=== PATIENT | male | born 1935 | race Caucasian/White ===

== ENCOUNTER → 2016-11-13 | Outpatient (CLI) | payer MEDICARE ==
[~2016-11-13] MED LIST: DOBUTamine DRIP for NUC MED 500 MG in DEXTROSE/WATER 1 250ML.BAG IV ONE
--- NOTE | 2016-11-13 12:20 | ECHOS ---
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 Max Heart Rate: 142 % of Max Predicted Heart Rate: 100 Rest Heart Rate: 66 Rest BP: 124/51 Max BP: 141/32 Mets Achieved: N/A The test was stopped because the target heart rate was achieved. Sinus rhythm. In response to stress, the ECG showed equivocal/borderline ST wave changes (see exercise report for details). LV size, wall thickness and systolic function are normal, with an EF of 60%. At recovery dobutamine stress, there was appropriate augmentation of systolic function of all segments CONCLUSIONS -------- 1. The patient received intravenous dobutamine beginning at 10 mcg/kg/min, increasing to 20 mcg/kg/min and 30 mcg/kg/min in 3 minute stages plus 0 mg atropine. 2. Sinus rhythm. 3. In response to stress, the ECG showed equivocal/borderline ST wave changes (see exercise report for details). 4. LV size, wall thickness and systolic function are normal, with an EF of 60%. 5. At recovery dobutamine stress, there was appropriate augmentation of systolic function of all segments 6. No 2D echocardiographic evidence of inducible ischemia to achieved workload. 7. No 2D echocardiographic evidence of inducible ischemia to pharmacologic stress. CONDITIONING MACHINE OPERATOR: Lobo Hicks RDCS
== END | disposition home or self-care (01) ==
LOC: RADNMMAIN 10:19
PROVIDERS: ATTEND Family Medicine
DX: I25.10 Atherosclerotic heart disease of native coronary artery without angina pectoris (principal)
CPT/HCPCS: 93017; C8928; J1250; Q9957; 93350

== ENCOUNTER → 2017-12-03 | Day surgery (SDC) | payer MEDICARE ==
[2017-11-26 15:25] VITALS: BMI 28.7
--- NOTE | 2017-12-02 08:58 | HP ---
HISTORY AND PHYSICAL CHIEF COMPLAINT: Right hand pain and numbness. HISTORY OF PRESENT ILLNESS: Patient is an 82-year-old, right-hand dominant, retired gentleman who presents with progressive right hand pain and numbness for the past several years. It has worsened recently. It is waking him up at night. He notes he has a difficult time with gripping and grasping. PAST MEDICAL HISTORY: Significant for heart disease, COPD, and hypertension. PAST SURGICAL HISTORY: Significant for previous heart surgery. CURRENT MEDICATIONS: 1. Advair. 2. Aspirin. 3. Losartan. 4. Proscar. 5. Ventolin. ALLERGIES: He denies drug allergies. FAMILY HISTORY: Family history is negative. SOCIAL HISTORY: Significant for previous tobacco use; however, he quit in 1966. He admits to daily alcohol use. REVIEW OF SYSTEMS: Sixteen point review of systems otherwise reviewed and is noncontributory. PHYSICAL EXAMINATION: On examination, the patient is approximately 5 feet 11 inches, 200 pounds of endomorphic habitus. HEENT exam is nonfocal. Neck is supple. On examination of his right hand, he has moderate thenar wasting. He has full digital range of motion. Adductor pollicis brevis strength is 4/5. Light touch is diminished in the right thumb, index and middle fingers. EMG report of the right upper extremity shows median motor latency of the carpal canal 6.6, sensory latency 12.5. IMPRESSION: 1. Symptomatic right carpal tunnel syndrome. 2. Chronic obstructive pulmonary disease. 3. History of heart disease. RECOMMENDATIONS: I talked to the patient at length regarding his condition and treatment options. At this point, he is quite symptomatic and opts to proceed with surgery. We will plan to proceed with right carpal tunnel release utilizing local anesthetic and IV sedation. We will likely perform that as an outpatient procedure. Risks and benefits were discussed at length in layman's terms. MMODL / IJN: [id number] /
[~2017-12-03] MED LIST changes: +DEXAMETHASONE SOD PHOSPHATE 10 MG/ML 1 ML VIAL IV ONE; -DOBUTamine DRIP for NUC MED 500 MG in DEXTROSE/WATER 1 250ML.BAG IV ONE; +LACTATED RINGERS 1,000 ML IV SCH; +LIDOCAINE 1% 20 ML VIAL (10MG/ML) FOR IV START INTRADERMA PRN; +LIDOCAINE 2% (PF) 20 MG/ML 2 ML AMP SQ ONE; +MIDAZOLAM 2 MG/2 ML VIAL IV PRN; +MIDAZOLAM 2 MG/2 ML VIAL ONE; +ONDANSETRON 4 MG/2 ML VIAL IVP ONE; +PROPOFOL 10 MG/ML 20 ML VIAL IV ONE; +ceFAZolin IN SWFI 2 GM/20 ML SYRINGE IVP ONE; +fentaNYL (PF) 50 MCG/ML 2 ML AMP IV PRN; +fentaNYL (PF) 50 MCG/ML 2 ML AMP ONE
--- NOTE | 2017-12-03 11:16 | P.OP ---
Date of Procedure: 12/03/17 Preoperative Diagnosis: Right carpal tunnel syndrome-symptomatic Postoperative Diagnosis: Same Procedure(s) Performed: Right carpal tunnel release Anesthesia: MAC, local Surgeon: [place] Estimated Blood Loss (ml): 2 Pathology: none sent Condition: stable Disposition: PACU Indications for Procedure: The patient's an 82-year-old male who presents with progressive right hand pain and numbness despite conservative measures. A discussion of the risks and benefits of operative intervention versus continued conservative measures was made with patient. He opted to proceed with surgery. Operative risks to include infection, neurovascular injury, development of blood clots, possible incomplete resolution of symptoms, possible recurrence of symptoms and need for subsequent procedures was discussed. Informed consent was obtained. Operative Findings: As below Description of Procedure: The patient was brought to the operating room, and after induction of IV sedation the right upper extremity was prepped and draped in a normal fashion. The proposed incision site was outlined with a skin marker in line with the radial aspect the fourth ray extending from the volar wrist crease distally 2-1/ 2 cm. 10 mL of 2% plain lidocaine was injected. The tourniquet was inflated to 250 mmHg. The skin incision was then made. The subcuticular tissues were divided sharply. Electrocautery was used for hemostasis. The superficial palmar fascia was identified and split in line with the skin incision. The transverse carpal ligament was identified and transected under direct visualization distally to level the palmar fat pad. I felt this was adequate distal release. Proximally it was taken to level of the volar wrist crease. A plane above and below the transverse carpal ligament was then bluntly developed with tenotomies. The confluence of the distal forearm fascia and the transverse carpal ligament was then transected under direct visualization with tenotomies with the tines pointed in the ulnar direction. I felt this was adequate proximal release. Neural lysis was not performed. The wound was irrigated normal saline. The skin was reprepped with simple 3-0 nylon suture. A sterile dressing was applied. The tourniquet was deflated with less than 15 minutes total tourniquet time. The patient was awoken from sedation and transferred to recovery room in good condition. Blood loss was estimated 2 mL. No complications were incurred. Sponge and needle counts were correct at the case.
[2017-12-03 11:24] VITALS: TEMP 97.6
[2017-12-03 11:28] VITALS: RESP 16
[2017-12-03 12:00] VITALS: BP 124/66; PULSE 77
== END | disposition home or self-care (01) ==
LOC: OR 08:49
PROVIDERS: ATTEND Orthopaedic Surgery
DX: G56.01 Carpal tunnel syndrome, right upper limb (principal); I10 Essential (primary) hypertension; I25.10 Atherosclerotic heart disease of native coronary artery without angina pectoris; J44.9 Chronic obstructive pulmonary disease, unspecified; M19.90 Unspecified osteoarthritis, unspecified site; K21.9 Gastro-esophageal reflux disease without esophagitis; Z79.51 Long term (current) use of inhaled steroids; Z79.82 Long term (current) use of aspirin; Z79.899 Other long term (current) drug therapy; Z87.891 Personal history of nicotine dependence; Z95.1 Presence of aortocoronary bypass graft
CPT/HCPCS: 64721; J2250; J1100; J2405; J3010; J2704; J2001; J0690

== ENCOUNTER → 2019-11-04 | Outpatient (CLI) | payer MEDICARE ==
[~2019-11-04] MED LIST changes: -DEXAMETHASONE SOD PHOSPHATE 10 MG/ML 1 ML VIAL IV ONE; +DOBUTamine DRIP for NUC MED 500 MG in DEXTROSE/WATER 1 250ML.BAG IV STA; -LACTATED RINGERS 1,000 ML IV SCH; -LIDOCAINE 1% 20 ML VIAL (10MG/ML) FOR IV START INTRADERMA PRN; -LIDOCAINE 2% (PF) 20 MG/ML 2 ML AMP SQ ONE; -MIDAZOLAM 2 MG/2 ML VIAL IV PRN; -MIDAZOLAM 2 MG/2 ML VIAL ONE; -ONDANSETRON 4 MG/2 ML VIAL IVP ONE; -PROPOFOL 10 MG/ML 20 ML VIAL IV ONE; -ceFAZolin IN SWFI 2 GM/20 ML SYRINGE IVP ONE; -fentaNYL (PF) 50 MCG/ML 2 ML AMP IV PRN; -fentaNYL (PF) 50 MCG/ML 2 ML AMP ONE
--- NOTE | 2019-11-04 12:19 | P.STRESS ---
- Stress Test Note Stress Test Results/Findings: Exam Performed: dobutamine stress echo with con Exam Date: 11/04/19 Reason for Exam: PRE-OP / CAD Height: 5 ft 10 in Weight: 190 kg Protocol: DSE Stage: 3 Duration of Exercise: 9:00 Resting Heart Rate: 65 Resting Blood Pressure: 84/40 Maximum Achieved Heart Rate: 126 Maximum Achieved Blood Pressure: 109/40 85% PMHR: 114 100% PMHR: 134 METS: NA Technologist Comment: Stress Test Results/Findings: This is a 83-year-old gentleman with history of hypertension, diabetes, hypercholesterolemia, being evaluated for cardiac status is a preop procedure. Patient has history of previous bypass surgery and also COPD. Stress data: Baseline EKG showed sinus rhythm with normal MN, QRS duration. Blood pressure at rest is 84/40 with pulse rate of 65. A standard dose of dobutamine was initiated at 10 mics and was titrated to 30 mics, achieving a maximum rate of 126 with a blood pressure 120/30. EKGs taken during after the dobutamine infusion showed mild ST depression in the anterior leads and also inferior leads of about half to 1 mm. Patient did not experience any chest pain. Echo data: Baseline echo images showed normal wall motion and thickening. Exercise echo images with low-dose and high-dose dobutamine showed progressive augmentation of wall motion and thickening in all segments. Final impression: #1. Positive dobutamine stress test based on EKG changes #2. Negative dobutamine echo
--- NOTE | 2019-11-05 13:57 | ECHOS ---
Stress Test Results/Findings: Exam Performed: dobutamine stress echo with con Exam Date: 11/04/19 Reason for Exam: PRE-OP / CAD Height: 5 ft 10 in Weight: 190 kg Protocol: DSE Stage: 3 Duration of Exercise: 9:00 Resting Heart Rate: 65 Resting Blood Pressure: 84/40 Maximum Achieved Heart Rate: 126 Maximum Achieved Blood Pressure: 109/40 85% PMHR: 114 100% PMHR: 134 METS: NA Technologist Comment: Stress Test Results/Findings: This is a 83-year-old gentleman with history of hypertension, diabetes, hypercholesterolemia, being evaluated for cardiac status is a preop procedure. Patient has history of previous bypass surgery and also COPD. Stress data: Baseline EKG showed sinus rhythm with normal SD, QRS duration. Blood pressure at rest is 84/40 with pulse rate of 65. A standard dose of dobutamine was initiated at 10 mics and was titrated to 30 mics, achieving a maximum rate of 126 with a blood pressure 120/30. EKGs taken during after the dobutamine infusion showed mild ST depression in the anterior leads and also inferior leads of about half to 1 mm. Patient did not experience any chest pain. Echo data: Baseline echo images showed normal wall motion and thickening. Exercise echo images with low-dose and high-dose dobutamine showed progressive augmentation of wall motion and thickening in all segments. Final impression: #1. Positive dobutamine stress test based on EKG changes #2. Negative dobutamine echo MTDD
== END | disposition home or self-care (01) ==
LOC: RADNMMAIN 10:11
PROVIDERS: ATTEND Family Medicine
DX: R94.39 Abnormal result of other cardiovascular function study (principal)
CPT/HCPCS: C8930; J1250; Q9950; 93351

== ENCOUNTER → 2021-11-02 | Outpatient (CLI) | payer MEDICARE ==
--- NOTE | 2021-11-02 16:21 | USB ---
Reason for Exam: Clinical finding. Findings: The whole breast of the left breast, the axilla of the left breast and the retroareolar of both breasts were scanned. Whole left breast ultrasound is performed including scanning of the subareolar region and axilla. Patient reports having mammogram and ultrasound for the left breast last year at [facility]. Those exams are not available for review at the time of this dictation. There appears to be dense tissue throughout. - At the 6:00 position, 4 cm from the nipple, there is an ovoid 1.0 x 0.5 x 0.4 cm hypoechoic area that demonstrates posterior through transmission, possibly debris-filled cyst. Six-month follow-up recommended. - Flame-shaped subareolar irregular gynecomastia suggested. - Benign-appearing left axillary tail lymph node with cortical thickness of 2 mm. - The glue reel operator reports the sensation of the transducer passing over a lump at the 3:00 position. There is underlying oval 4.5 x 1.3 cm heterogeneous echogenic area here. This can be assessed on ultrasound. Possible focal dense island of tissue. No other solid or cystic lesion. Overall Assessment: Incomplete: need additional imaging evaluation, BI-RAD 0 Management: Diagnostic Mammogram of both breasts. Bilateral diagnostic mammograms to assess for mammographic correlates to the left-sided ultrasound findings above. Electronically signed and approved by: Tomer Geronimo M.D. Radiologist
--- NOTE | 2021-11-02 16:24 | MM ---
Reason for Exam: Clinical finding. Baseline mammogram. Indicated Problems: Lump or thickening. Prior Study Comparison: Patient's first Mammogram. Tissue Density: The breast tissue is heterogeneously dense. This may lower the sensitivity of mammography. Findings: Analyzed By CAD. Only bilateral MLO views could be acquired as the patient did not have enough tissue to bring in for CC views. There is a palpable marker along the lateral periareolar left breast. There are somewhat heterogeneously dense tissues in the left breast and scattered densities in the right breast. On 3-D images, no persisting mass or suspicious microcalcification is seen. Six-month follow-up left breast ultrasound can be performed. Overall Assessment: Probably benign, BI-RAD 3 Management: Diagnostic Breast Ultrasound of the left breast in 6 months. 1. There appears to be a small amount of newly developing gynecomastia in the subareolar left breast that may correspond to the patient's palpable site. There is a background of more extensive chronic fibrotic appearing gynecomastia on both sides, left more so than the right. 2. There are a field left breast ultrasound findings that can be reassessed in 6 months. Electronically signed and approved by: Tomer Geronimo M.D. Radiologist
== END | disposition home or self-care (01) ==
LOC: RADUSWWP 15:05
PROVIDERS: ATTEND Surgery
DX: N63.20 Unspecified lump in the left breast, unspecified quadrant (principal)
CPT/HCPCS: 77066; 76641; G0279; 77062

== ENCOUNTER 2022-04-10 20:00 | Inpatient (IN) | payer MEDICARE ==
--- NOTE | 2022-04-10 21:23 | ED ---
General Adult HPI - General Chief complaint: Shortness of Breath Stated complaint: abn labs Time Seen by Provider: 04/10/22 20:18 Source: patient, RN notes reviewed, old records reviewed Mode of arrival: wheelchair - History of Present Illness Initial comments: Patient is an 86-year-old male who presents here to Department complaining of worsening shortness breath over the last few weeks. Is a history of COPD, hypertension. Is normally on 3 L nasal cannula oxygen at home at night, however has been needing it more recently during the day. States he has had worsening lower extremity edema. Mild nonproductive cough. No fevers. No nausea, vomiting, abdominal pain. No chest pain. Saw his PCP earlier today, and workup was remarkable for an elevated troponin minimally, as well as findings concerning for heart failure exacerbation. He was instructed to come here for further evaluation. Lasix was decreased weeks ago. Does have a history of chronic lung disease. Is resting comfortably at this time and has no other acute complaint at this time and presents for further evaluation. Denies any bleeding, melena, dark stools, hematemesis. No other acute findings at this time. Endorses mild orthopnea. Denies PND. Endorses lower extremity edema, as well as exertional dyspnea. - Related Data Home Medications Medication Instructions Recorded Confirmed Finasteride [Proscar] 5 mg PO DAILY 11/26/17 04/10/22 Oxaprozin [Daypro] 600 mg PO DAILY 11/26/17 04/10/22 Albuterol Inhaler [Ventolin Hfa 2 puff INHALATION RT-Q6H PRN 04/10/22 04/10/22 Inhaler] Clopidogrel [Plavix] 75 mg PO DAILY 04/10/22 04/10/22 Fluticasone Propion/Salmeterol 1 puff INHALATION RT-BID 04/10/22 04/10/22 [Fluticasone-Salmeterol 250-50] Furosemide [Lasix] 40 mg PO DAILY 04/10/22 04/10/22 Metoprolol Succinate [Metoprolol 25 mg PO DAILY 04/10/22 04/10/22 Succinate ER] Pravastatin Sodium [Pravachol] 20 mg PO DAILY 04/10/22 04/10/22 hydroCHLOROthiazide [Hydrodiuril] 25 mg PO DAILY PRN 04/10/22 04/10/22 Allergies Allergy/AdvReac Type Severity Reaction Status Date / Time No Known Allergies Allergy Verified 04/10/22 22:39 Review of Systems ROS Statement: Those systems with pertinent positive or pertinent negative responses have been documented in the HPI. Review of Systems: CONST: Denies fever EYES: Denies blurry vision ENT: Denies nasal congestion C/V: Denies Chest pain RESP: Shortness of breath GI: Denies abdominal pain : Denies dysuria SKIN: Denies rash. MSK: Denies joint pain. NEURO: Denies headache ROS Other: All systems not noted in ROS Statement are negative. Past Medical History Past Medical History: Coronary Artery Disease (CAD), COPD, Eye Disorder, Hearing Disorder / Deafness, Hypertension, Osteoarthritis (OA), Prostate Disorder, Skin Disorder Additional Past Medical History / Comment(s): GLAUCOMA, EYE PROB R/T WELDING WORK. RT CTS. ECZEMA History of Any Multi-Drug Resistant Organisms: None Reported Past Surgical History: Coronary Bypass/CABG, Hernia Repair, Prostate Surgery Additional Past Surgical History / Comment(s): QUAD CABG 2012 EST. EYE SURGERIES. ING HERNIA W/ MESH. Past Anesthesia/Blood Transfusion Reactions: No Reported Reaction Past Psychological History: No Psychological Hx Reported Past Alcohol Use History: Heavy Past Drug Use History: None Reported - Past Family History Father Family Medical History: Cancer General Exam - General Exam Comments Initial Comments: General: Appears in no acute distress. HEAD: Normal with no signs of head trauma. EYES: PERRLA, EOMI, conjunctiva normal, no discharge. ENT: Hearing grossly intact, normal oropharynx. RESPIRATORY: Somewhat bilateral crackles at the bases. Mild hypoxia on room air. No respiratory distress. C/V: Regular rate and rhythm. S1 and S2 auscultated, bilateral lower extremity pitting edema, 2-3+. Patient states this is his baseline., peripheral pulses 2+ and intact throughout ABD: Abd is soft, nontender, nondistended EXT: Normal range of motion, no obvious deformity SKIN: No rashes or lesions observed on exposed skin. NEURO: Alert and oriented 4. Course Vital Signs 04/10/22 04/10/22 04/10/22 20:05 21:15 22:18 Temperature 98.1 F Pulse Rate 70 74 Respiratory 22 22 18 Rate Blood Pressure 138/77 129/65 O2 Sat by Pulse 99 93 L Oximetry Medical Decision Making - Medical Decision Making Was pt. sent in by a medical professional or institution? @ -Primary care physician Did you speak to anyone other than the patient for history? @ -Patient and family Did you review nursing and triage notes? @ -Yes. Agreed. Were old charts reviewed? @ -Yes. Differential Diagnosis? @ -Differential Dyspnea: Coronary syndrome, arrhythmia, tamponade, asthma, COPD, pulmonary embolism, pneumonia, pneumothorax, pulmonary effusion, anaphylaxis, diabetic ketoacidosis, flailed chest, pulmonary contusion, diaphragmatic rupture, anemia, neuromuscular, this is not meant to be an all-inclusive list. EKG interpreted by me (3pts min.)? @ -Yes. See EKG note. X-rays interpreted by me (1pt min.)? @ -Yes. Chest x-ray shows bilateral pleural effusions, as well as findings concerning for mild pulmonary vascular congestion. CT interpreted by me (1pt min.)? @ -none U/S interpreted by me (1pt. min.)? @ -none What testing was considered but not performed? (CT, X-rays, U/S, labs)? Why? @CT chest. Was obtained earlier. What meds were considered but not given? Why? @ -none Did you discuss the management of the patient with other professionals? @ -No Did you reconcile home meds? @ -No Was smoking cessation discussed for >3mins.? @ -none Was critical care preformed (if so, how long)? @ -none Were there social determinants of health that impacted care today? How? (Homelessness, low income, unemployed, alcoholism, drug addiction, transportation, low edu. Level, literacy, decrease access to med. care, retirement, rehab)? @ -No Was there de-escalation of care discussed even if they declined? (Discuss DNR or withdrawal of care, Hospice)? @ -No What co-morbidities impacted this encounter? (DM, HTN, Smoking, COPD, CAD, Cancer, CVA, Hep., AIDS, mental health diagnosis, sleep apnea, morbid obesity)? @ -Chronic lung disease, CHF, hypertension Was patient admitted / discharged? @ -Based on the patient's presentation and physical exam, there was concern for CHF exacerbation. Workup earlier did support this based on the elevated BNP and slightly elevated troponin which is likely secondary to the CHF exacerbation. CT chest obtained earlier was interpreted as revealing a masslike consolidation of the right lung base, which patient states is chronic. There are also bilateral pleural effusions as well as findings concerning for CHF exacerbation. We did repeat labs which did support this. I discussed with the patient as well as family that I believe he requires admission the hospital, will be started on IV diuresis and will be evaluated by pulmonology as well as cardiology. We discuss his findings and a were in agreement with this plan. He was started on IV Lasix twice a day. We'll trend the troponin. Echo was ordered. He'll be given an aspirin. Pulmonology as well as cardiology were consulted to evaluate the patient in the morning. I spoke with the admitting team, Dr. Shahid who accepted the patient. Undiagnosed new problem with uncertain prognosis? @ -none Drug Therapy requiring intensive monitoring for toxicity (Heparin, Nitro, Insulin, Cardizem)? @ -none Were any procedures done? @ -none Diagnosis/symptom? @ -Pleural effusions, CHF exacerbation, exertional dyspnea Acute, or Chronic, or Acute on Chronic? @ -Acute on chronic Uncomplicated (without systemic symptoms) or Complicated (systemic symptoms)? @ -Complicated Side effects of treatment? @ -none Exacerbation, Progression, or Severe Exacerbation] @ -Progression Poses a threat to life or bodily function? @ -no - Lab Data Result diagrams: 04/10/22 21:08 04/10/22 21:08 Lab Results 04/10/22 04/10/22 04/10/22 Range/Units 21:08 21:08 21:08 WBC 6.3 (3.8-10.6) k/uL RBC 2.89 L (4.30-5.90) m/uL Hgb 8.7 L (13.0-17.5) gm/dL Hct 27.1 L (39.0-53.0) % MCV 93.8 (80.0-100.0) fL MCH 30.2 (25.0-35.0) pg MCHC 32.2 (31.0-37.0) g/dL RDW 14.8 (11.5-15.5) % Plt Count 222 (150-450) k/uL MPV 9.7 Neutrophils % (Manual) 73 % Lymphocytes % (Manual) 13 % Monocytes % (Manual) 10 % Eosinophils % (Manual) 3 % Basophils % (Manual) 1 % Neutrophils # (Manual) 4.60 (1.3-7.7) k/uL Lymphocytes # (Manual) 0.82 L (1.0-4.8) k/uL Monocytes # (Manual) 0.63 (0-1.0) k/uL Eosinophils # (Manual) 0.19 (0-0.7) k/uL Basophils # (Manual) 0.06 (0-0.2) k/uL Nucleated RBCs 0 (0-0) /100 WBC Manual Slide Review Performed Hypochromasia Marked Poikilocytosis Slight PT 10.3 (9.0-12.0) sec INR 1.0 (<1.2) APTT 24.2 (22.0-30.0) sec Sodium (137-145) mmol/L Potassium (3.5-5.1) mmol/L Chloride (98-107) mmol/L Carbon Dioxide (22-30) mmol/L Anion Gap mmol/L BUN (9-20) mg/dL Creatinine (0.66-1.25) mg/dL Est GFR (CKD-EPI)AfAm (>60 ml/min/1.73 sqM) Est GFR (CKD-EPI)NonAf (>60 ml/min/1.73 sqM) Glucose (74-99) mg/dL Plasma Lactic Acid Sergei (0.7-2.0) mmol/L Calcium (8.4-10.2) mg/dL Magnesium (1.6-2.3) mg/dL Total Bilirubin (0.2-1.3) mg/dL AST (17-59) U/L ALT (4-49) U/L Alkaline Phosphatase (38-126) U/L Troponin I (0.000-0.034) ng/mL NT-Pro-B Natriuret Pep pg/mL Total Protein (6.3-8.2) g/dL Albumin (3.5-5.0) g/dL Influenza Type A (PCR) Not Detected (Not Detectd) Influenza Type B (PCR) Not Detected (Not Detectd) RSV (PCR) Not Detected (Not Detectd) SARS-CoV-2 (PCR) Not Detected (Not Detectd) 04/10/22 04/10/22 04/10/22 Range/Units 21:08 21:08 21:08 WBC (3.8-10.6) k/uL RBC (4.30-5.90) m/uL Hgb (13.0-17.5) gm/dL Hct (39.0-53.0) % MCV (80.0-100.0) fL MCH (25.0-35.0) pg MCHC (31.0-37.0) g/dL RDW (11.5-15.5) % Plt Count (150-450) k/uL MPV Neutrophils % (Manual) % Lymphocytes % (Manual) % Monocytes % (Manual) % Eosinophils % (Manual) % Basophils % (Manual) % Neutrophils # (Manual) (1.3-7.7) k/uL Lymphocytes # (Manual) (1.0-4.8) k/uL Monocytes # (Manual) (0-1.0) k/uL Eosinophils # (Manual) (0-0.7) k/uL Basophils # (Manual) (0-0.2) k/uL Nucleated RBCs (0-0) /100 WBC Manual Slide Review Hypochromasia Poikilocytosis PT (9.0-12.0) sec INR (<1.2) APTT (22.0-30.0) sec Sodium 138 (137-145) mmol/L Potassium 4.6 (3.5-5.1) mmol/L Chloride 105 (98-107) mmol/L Carbon Dioxide 28 (22-30) mmol/L Anion Gap 5 mmol/L BUN 23 H (9-20) mg/dL Creatinine 1.68 H (0.66-1.25) mg/dL Est GFR (CKD-EPI)AfAm 41 (>60 ml/min/1.73 sqM) Est GFR (CKD-EPI)NonAf 36 (>60 ml/min/1.73 sqM) Glucose 95 (74-99) mg/dL Plasma Lactic Acid Sergei 1.1 (0.7-2.0) mmol/L Calcium 8.6 (8.4-10.2) mg/dL Magnesium 2.3 (1.6-2.3) mg/dL Total Bilirubin 0.5 (0.2-1.3) mg/dL AST 25 (17-59) U/L ALT 13 (4-49) U/L Alkaline Phosphatase 78 (38-126) U/L Troponin I 0.039 H* (0.000-0.034) ng/mL NT-Pro-B Natriuret Pep pg/mL Total Protein 6.4 (6.3-8.2) g/dL Albumin 3.5 (3.5-5.0) g/dL Influenza Type A (PCR) (Not Detectd) Influenza Type B (PCR) (Not Detectd) RSV (PCR) (Not Detectd) SARS-CoV-2 (PCR) (Not Detectd) 04/10/22 Range/Units 21:08 WBC (3.8-10.6) k/uL RBC (4.30-5.90) m/uL Hgb (13.0-17.5) gm/dL Hct (39.0-53.0) % MCV (80.0-100.0) fL MCH (25.0-35.0) pg MCHC (31.0-37.0) g/dL RDW (11.5-15.5) % Plt Count (150-450) k/uL MPV Neutrophils % (Manual) % Lymphocytes % (Manual) % Monocytes % (Manual) % Eosinophils % (Manual) % Basophils % (Manual) % Neutrophils # (Manual) (1.3-7.7) k/uL Lymphocytes # (Manual) (1.0-4.8) k/uL Monocytes # (Manual) (0-1.0) k/uL Eosinophils # (Manual) (0-0.7) k/uL Basophils # (Manual) (0-0.2) k/uL Nucleated RBCs (0-0) /100 WBC Manual Slide Review Hypochromasia Poikilocytosis PT (9.0-12.0) sec INR (<1.2) APTT (22.0-30.0) sec Sodium (137-145) mmol/L Potassium (3.5-5.1) mmol/L Chloride (98-107) mmol/L Carbon Dioxide (22-30) mmol/L Anion Gap mmol/L BUN (9-20) mg/dL Creatinine (0.66-1.25) mg/dL Est GFR (CKD-EPI)AfAm (>60 ml/min/1.73 sqM) Est GFR (CKD-EPI)NonAf (>60 ml/min/1.73 sqM) Glucose (74-99) mg/dL Plasma Lactic Acid Sergei (0.7-2.0) mmol/L Calcium (8.4-10.2) mg/dL Magnesium (1.6-2.3) mg/dL Total Bilirubin (0.2-1.3) mg/dL AST (17-59) U/L ALT (4-49) U/L Alkaline Phosphatase (38-126) U/L Troponin I (0.000-0.034) ng/mL NT-Pro-B Natriuret Pep 3420 pg/mL Total Protein (6.3-8.2) g/dL Albumin (3.5-5.0) g/dL Influenza Type A (PCR) (Not Detectd) Influenza Type B (PCR) (Not Detectd) RSV (PCR) (Not Detectd) SARS-CoV-2 (PCR) (Not Detectd) - EKG Data -: EKG Interpreted by Me EKG Comments: 12-lead Electrocardiogram Interpretation Note EKG was reviewed and interpreted by myself. 12-lead ECG performed at 2005 is interpreted by me as revealing normal sinus rhythm at a rate of 71 beats per minute. [place] is normal. QRS durations 102 ms, QTc is 433 ms.. There were no ST or T wave abnormalities to suggest myocardial ischemia or injury. R wave progression across the precordium was satisfactory. By my interpretation this EKG is non-diagnostic for acute ischemia. Prior EKG from October 2019 during a stress EKG was compared to, and shows no obvious change. Disposition Clinical Impression: Fluid overload, Hypoxia, Pleural effusion Disposition: ADMITTED IP TO THIS HOSP Condition: Stable Time of Disposition: 22:30
[2022-04-10 21:31] LABS: Partial Thromboplastin Time 24.2 sec (22.0-30.0); Prothrombin Time 10.3 sec (9.0-12.0)
[2022-04-10 21:34] LABS: Albumin 3.5 g/dL (3.5-5.0); Calcium 8.6 mg/dL (8.4-10.2); HCT 27.1 % (39.0-53.0); HGB 8.7 gm/dL (13.0-17.5); Hypochromasia Marked; MCH 30.2 pg (25.0-35.0); MCHC 32.2 g/dL (31.0-37.0); MCV 93.8 fL (80.0-100.0); Magnesium 2.3 mg/dL (1.6-2.3); Mean Platelet Volume 9.7; Platelet Count 222 k/uL (150-450); Poikilocytosis Slight; Potassium 4.6 mmol/L (3.5-5.1); RBC 2.89 m/uL (4.30-5.90); RDW 14.8 % (11.5-15.5); Total Bilirubin 0.5 mg/dL (0.2-1.3); Total Protein 6.4 g/dL (6.3-8.2); WBC 6.3 k/uL (3.8-10.6)
--- NOTE | 2022-04-10 21:37 | XR ---
EXAMINATION TYPE: XR chest 2V DATE OF EXAM: 04/10/2022 9:31 PM COMPARISON: CT chest same day TECHNIQUE: XR chest 2V Frontal and lateral views of the chest. CLINICAL INDICATION:Male, 86 years old with history of difficulty breathing; FINDINGS: Lungs/Pleura: Scattered airspace opacities superimposed on centrilobular emphysema changes and streak y atelectasis scarring. There is calcified pleural plaquing and loculated fluid within the major fiss ures. There is no evidence of pleural effusion, focal consolidation, or pneumothorax. Pulmonary vascularity: Unremarkable. Heart/mediastinum: Cardiomediastinal silhouette is enlarged and stable. Musculoskeletal: No acute osseous pathology. IMPRESSION: No significant change given differences in technique from CT same day at 538pm , consider correlation with serum BNP to rule out underlying congestive heart failure given trace pleural effusions and car diomegaly..
[2022-04-10] MEDS: FUROSEMIDE 10 MG/ML 4 ML VIAL IV SCH (22:18)
[2022-04-10 22:19] LABS: Basophils # (M) 0.06 k/uL (0-0.2); Eosinophils # (M) 0.19 k/uL (0-0.7); Lymphocytes # (M) 0.82 k/uL (1.0-4.8); Monocytes # (M) 0.63 k/uL (0-1.0); Neutrophils % (M) 73 %; Nucleated Red Blood Cells 0 /100 WBC (0-0); Total Cells Counted 100
[2022-04-10] MEDS ORDERED: NALOXONE 0.4 MG/ML 1 ML VIAL IV PRN (22:44)
[2022-04-10] MEDS ORDERED: hydroCHLOROthiazide 25 MG TAB PO PRN (22:47)
[2022-04-10] MEDS ORDERED: ALBUTEROL NEBULIZED 2.5 MG/3 ML INHALATION PRN (22:47)
[2022-04-10] MEDS ORDERED: ASPIRIN 81 MG PO STA (22:48)
--- NOTE | 2022-04-11 03:35 | P.HPIM ---
History of Present Illness H&P Date: 04/10/22 Chief Complaint: shortness of breath , leg edema 86 year old male with COPD o home oxygen 3 L NC patient coming in for evaluation regarding gradual worsening of exertional d yspnea over the past few days, at baseline he is able to walk to the mail box and back even without oxygen , however, over past couple days he cant even walk around the house with oxygen without getting very short of breath, he was noted to have gradual increase in leg edema. he is known to have CAD and CHF in the past, but patient does not recall details. history was obtained from his grandson at bedside. he denies any cough, fever, chills, nausea or vomiting, denies abd pain , changes in bowel or urinary habits, denies any GI bleeding. patient son who is a pharmacist, has stopped his lasix due to low blood pressure for at least few days now. patient was diagnosed with COVID and had mild COVID symptoms , mainly fatigue since the 25 of march. patient does report significant orthopnea , but denies PNDs. he denies any smoking, illicit drugs or heavy alcohol consumption workup in the ED showed CT chest showed changes suggestive of fibrosis , and possible mass in the right lung EKG showed afib , rate controlled blood work showed elevated creatinine , and low hgb , and slightly elevated trops, but not trending up. unknown baseline Review of Systems Pertinent positives as noted in HPI. All other systems were reviewed and are negative Past Medical History Past Medical History: Coronary Artery Disease (CAD), COPD, Eye Disorder, Hearing Disorder / Deafness, Hypertension, Osteoarthritis (OA), Prostate Disorder, Skin Disorder Additional Past Medical History / Comment(s): GLAUCOMA, EYE PROB R/T WELDING WORK. RT CTS. ECZEMA History of Any Multi-Drug Resistant Organisms: None Reported Past Surgical History: Coronary Bypass/CABG, Hernia Repair, Prostate Surgery Additional Past Surgical History / Comment(s): QUAD CABG 2012 EST. EYE SURGERIES. ING HERNIA W/ MESH. Past Anesthesia/Blood Transfusion Reactions: No Reported Reaction Past Psychological History: No Psychological Hx Reported Past Alcohol Use History: Heavy Past Drug Use History: None Reported - Past Family History Father Family Medical History: Cancer Medications and Allergies Home Medications Medication Instructions Recorded Confirmed Type Finasteride [Proscar] 5 mg PO DAILY 11/26/17 04/10/22 History Oxaprozin [Daypro] 600 mg PO DAILY 11/26/17 04/10/22 History Albuterol Inhaler [Ventolin Hfa 2 puff INHALATION RT-Q6H PRN 04/10/22 04/10/22 History Inhaler] Clopidogrel [Plavix] 75 mg PO DAILY 04/10/22 04/10/22 History Fluticasone Propion/Salmeterol 1 puff INHALATION RT-BID 04/10/22 04/10/22 History [Fluticasone-Salmeterol 250-50] Furosemide [Lasix] 40 mg PO DAILY 04/10/22 04/10/22 History Metoprolol Succinate [Metoprolol 25 mg PO DAILY 04/10/22 04/10/22 History Succinate ER] Pravastatin Sodium [Pravachol] 20 mg PO DAILY 04/10/22 04/10/22 History hydroCHLOROthiazide [Hydrodiuril] 25 mg PO DAILY PRN 04/10/22 04/10/22 History Allergies Allergy/AdvReac Type Severity Reaction Status Date / Time No Known Allergies Allergy Verified 04/10/22 22:39 Physical Exam Vitals: Vital Signs Temp Pulse Resp BP Pulse Ox 04/10/22 22:18 74 18 129/65 93 L 04/10/22 20:05 98.1 F 70 22 138/77 99 Intake and Output 04/10/22 04/10/22 04/10/22 06:59 14:59 22:59 Other: Weight 74.389 kg Constitutional: No acute distress Eyes: Anicteric sclerae, moist conjunctiva, Pupils equal round reactive to light ENMT: NC/AT Oropharynx clear, no erythema, or exudates Neck: Supple, no masses, or JVD No carotid bruits No thyromegaly Lungs: inspiratory rales at bilateral lung bases with diminished breath sounds at lung basis Clear to percussion Normal respiratory effort, no accessory muscle use Cardiovascular: Heart irregular in rate and rhythm, systolic murmurs, no gallops, or rubs +2 bilateral peripheral edema Abdominal: Soft Nontender, no guarding, rebound or rigidity Abdomen moving with respiration Normoactive bowel sounds No hepatomegaly, No splenomegaly No palpable mass No abdominal wall hernia noted Skin: echymosis over bilateral forearms , bump with a bruise over the lower third of left leg. otherwise, Normal temperature, tone, texture, turgor Extremities: No digital cyanosis Pedal pulses intact and symmetrical Radial pulses intact and symmetrical No calf tenderness Psychiatric: Alert and oriented to person, place Neuro Muscles Strength 4/5 in all 4 extremities Sensation to light touch grossly present throughout Cranial nerves II-XII grossly intact Lymphatics: no palpable cervical or supraclavicular lymph nodes Results CBC & Chem 7: 04/10/22 21:08 04/10/22 21:08 Labs: Abnormal Lab Results - Last 24 Hours (Table) 04/10/22 04/10/22 04/10/22 Range/Units 21:08 21:08 21:08 RBC 2.89 L (4.30-5.90) m/uL Hgb 8.7 L (13.0-17.5) gm/dL Hct 27.1 L (39.0-53.0) % Lymphocytes # (Manual) 0.82 L (1.0-4.8) k/uL BUN 23 H (9-20) mg/dL Creatinine 1.68 H (0.66-1.25) mg/dL Troponin I 0.039 H* (0.000-0.034) ng/mL Assessment and Plan Assessment: worsening exertional dyspnea could be secondary to underlying CHF , vs progresssive lung disease chronic hypoxic respiratory failure CT chest showed possible right lung mass, and fibrotic changes bilateral lungs EKG afib , rate controlled supportive care resume home meds patient is not on anticoagulation at home resume plavix resume metoprolol IV lasix BID resume HCTZ cafeteria monitor cardiology consult pulmonary consult DAFNE unknown baseline monitor urine output and renal function Anemia unknown baseline denies GI bleeding continue to monitor chronic conditions CAD , hypertension , COPD with chronic hypoxic respiratory failure resume cardiac meds inhalers as needed full code DVT PPX heparin sc tid
[2022-04-11 04:43] LABS: HCT 25.6 % (39.0-53.0); Hypochromasia Marked; MCH 29.7 pg (25.0-35.0); MCHC 31.4 g/dL (31.0-37.0); MCV 94.7 fL (80.0-100.0); Mean Platelet Volume 8.9; Platelet Count 223 k/uL (150-450); Poikilocytosis Slight; RDW 14.6 % (11.5-15.5); WBC 5.7 k/uL (3.8-10.6)
[2022-04-11 04:46] LABS: Calcium 8.1 mg/dL (8.4-10.2); Potassium 3.8 mmol/L (3.5-5.1)
[2022-04-11 05:33] LABS: Anisocytosis (M) Present; Basophils # (M) 0.06 k/uL (0-0.2); Eosinophils # (M) 0.34 k/uL (0-0.7); Lymphocytes # (M) 1.08 k/uL (1.0-4.8); Monocytes # (M) 0.46 k/uL (0-1.0); Neutrophils # (M) 3.76 k/uL (1.3-7.7); Neutrophils % (M) 66 %; Nucleated Red Blood Cells 0 /100 WBC (0-0); Poikilocytosis (M) Present; Total Cells Counted 100
[2022-04-11] MEDS ORDERED: IPRATROPIUM-ALBUTEROL 3 ML NEB INHALATION PRN (08:18)
--- NOTE | 2022-04-11 08:19 | P.CNPUL ---
History of Present Illness Consult date: 04/11/22 Requesting physician: Ana Shahid Reason for consult: dyspnea, hypoxemia, pleural effusion, abnormal CXR/CT Chief complaint: Shortness of breath. History of present illness: Pulmonary consult dated 04/11/2022. 78-year-old male seen in the emergency room,, room 21. I Dr[address] Leonid willson, on April 10. He apparently presented to the emergency room, complaining of shortness of breath. It been going on for at least a couple days prior to admission, and maybe even a week or so. His primary care physician is Dr. Mitchel Bergeron. The patient states that his chest filled up with fluid. Currently, he is on 3 L of oxygen. He's not having any respiratory distress or difficulty. There is no conversational dyspnea, or use of accessory muscles. He apparently is also been having a nonproductive cough, and some lower extremity edema. His past medical history includes CAD, COPD, hearing impairment, hypertension, osteoarthritis, hyperlipidemia, glaucoma, and eczema. The patient has had a previous bypass grafting. White count 5.7, hemoglobin 8, hematocrit 25.6, platelet count normal. Coagulation studies were normal. Sodium 138, potassium 3.8, chlorides 106, CO2 29, BUN 25, creatinine 1.76. Troponins were 0.039, 0.038, and 0.032. N-terminal proBNP was elevated at 3420. Testing for influenza, RSV, and coronavirus are all negative. Chest x-ray is positive for CHF, with small bilateral effusions. Review of Systems REVIEW OF SYSTEMS: CONSTITUTIONAL: [Negative.] NEUROLOGIC: [ Negative.] HEENT: [ Negative.] CARDIAC: Lower extremity edema. PULMONARY: Shortness of breath and nonproductive cough. GI: [Negative.] : [Negative.] RHEUMATOLOGIC: [ Negative.] IMMUNOLOGIC: [ Negative.] ENDOCRINE: [Negative. 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 ECZEMA History of Any Multi-Drug Resistant Organisms: None Reported Past Surgical History: Coronary Bypass/CABG, Hernia Repair, Prostate Surgery Additional Past Surgical History / Comment(s): QUAD CABG 2012 EST. EYE SURGERIES. ING HERNIA W/ MESH. Past Anesthesia/Blood Transfusion Reactions: No Reported Reaction Past Psychological History: No Psychological Hx Reported Past Alcohol Use History: Heavy Past Drug Use History: None Reported - Past Family History Father Family Medical History: Cancer Medications and Allergies Home Medications Medication Instructions Recorded Confirmed Type Finasteride [Proscar] 5 mg PO DAILY 11/26/17 04/10/22 History Oxaprozin [Daypro] 600 mg PO DAILY 11/26/17 04/10/22 History Albuterol Inhaler [Ventolin Hfa 2 puff INHALATION RT-Q6H PRN 04/10/22 04/10/22 History Inhaler] Clopidogrel [Plavix] 75 mg PO DAILY 04/10/22 04/10/22 History Fluticasone Propion/Salmeterol 1 puff INHALATION RT-BID 04/10/22 04/10/22 History [Fluticasone-Salmeterol 250-50] Furosemide [Lasix] 40 mg PO DAILY 04/10/22 04/10/22 History Metoprolol Succinate [Metoprolol 25 mg PO DAILY 04/10/22 04/10/22 History Succinate ER] Pravastatin Sodium [Pravachol] 20 mg PO DAILY 04/10/22 04/10/22 History hydroCHLOROthiazide [Hydrodiuril] 25 mg PO DAILY PRN 04/10/22 04/10/22 History Allergies Allergy/AdvReac Type Severity Reaction Status Date / Time No Known Allergies Allergy Verified 04/10/22 22:39 Physical Exam Osteopathic Statement: *. No significant issues noted on an osteopathic structural exam other than those noted in the History and Physical/Consult. Vitals: Vital Signs Temp Pulse Resp BP Pulse Ox 04/11/22 07:21 97.7 F 66 16 126/85 97 04/11/22 02:49 75 16 119/59 99 04/10/22 22:18 74 18 129/65 93 L 04/10/22 21:15 22 04/10/22 20:05 98.1 F 70 22 138/77 99 Intake and Output 04/10/22 04/11/22 04/11/22 22:59 06:59 14:59 Other: Weight 74.389 kg No acute distress, oriented 3. Currently on 3 L. No conversational dyspnea or use of accessory muscles. HEENT examination is grossly unremarkable. Neck supple. Full range of motion. No adenopathy thyromegaly or neck vein distention. Cardiovascular examination reveals regular rhythm rate. S1-S2 normal. No S3 or S4. No discernible murmur noted. Heart sounds distant. Heart rate 66 bpm. Lungs reveal bibasilar crackles. Scattered mild rhonchi. No wheezes. Breath sounds equal bilaterally. 3 L saturation 97%. Abdomen soft bowel sounds are heard. No masses or tenderness. Extremities reveal mild pitting edema to lower extremities. No cyanosis or clubbing. Skin is without rash or lesion. Neurologic examination is brief but nonfocal. Results - Laboratory Findings CBC and BMP: 04/11/22 03:54 04/11/22 03:54 PT/INR, D-dimer PT 10.3 sec (9.0-12.0) 04/10/22 21:08 INR 1.0 (<1.2) 04/10/22 21:08 Abnormal lab findings: Abnormal Labs 04/10/22 04/10/22 04/10/22 21:08 21:08 21:08 RBC 2.89 L Hgb 8.7 L Hct 27.1 L Lymphocytes # (Manual) 0.82 L BUN 23 H Creatinine 1.68 H Calcium Troponin I 0.039 H* 04/11/22 04/11/22 04/11/22 00:30 03:54 03:54 RBC 2.70 L Hgb 8.0 L Hct 25.6 L Lymphocytes # (Manual) BUN 25 H Creatinine 1.76 H Calcium 8.1 L Troponin I 0.038 H* - Diagnostic Findings Chest x-ray: image reviewed Assessment and Plan Assessment: Shortness of breath, most likely related to CHF. History of COPD, not thought to be particularly active at this time. Prior history of heavy tobacco use. History of CAD with previous bypass grafting, 2011. History of osteoarthritis. History of hypertension. History of hyperlipidemia. Hearing impairment. History of glaucoma. Plan: Plan dated 04/11/2022. The patient's labs, x-rays, medications are reviewed. The patient is seen today in the emergency room, room 21. He is on 3 L. Very comfortable. Not receiving any IV fluids. His examination, and laboratory data as well as his chest x-ray my opinion consistent with fluid overload CHF. He apparently had this in the past. I don't believe his COPD is particularly active at this time. We will continue to follow make recommendations along the way. Prognosis is guarded. Time with Patient: Greater than 30
[2022-04-11] MEDS ORDERED: NAPROXEN 250 MG TAB PO PRN (09:00)
[2022-04-11] MEDS: FUROSEMIDE 10 MG/ML 4 ML VIAL IV SCH ×2 (10:24→21:13)
[2022-04-11] MEDS: METOPROLOL SUCCINATE (ER) 25 MG TAB.ER.24H PO SCH (10:24)
[2022-04-11] MEDS: LOSARTAN 25 MG TAB PO SCH (10:24)
[2022-04-11] MEDS: FINASTERIDE 5 MG TAB PO SCH (10:25)
[2022-04-11] MEDS: hydroCHLOROthiazide 25 MG TAB PO SCH (10:25)
[2022-04-11] MEDS: CLOPIDOGREL 75 MG TAB PO SCH (10:25)
[2022-04-11] MEDS: PRAVASTATIN SODIUM 20 MG TAB PO SCH (10:25)
--- NOTE | 2022-04-11 10:32 | CONS ---
CONSULTATION HISTORY OF PRESENT ILLNESS: Mr. Rowdy Talamantes is an 86-year-old gentleman with history of CAD, prior bypass surgery, 4 grafts placed in [place]. This surgery was performed around the year 1999, details unavailable. He also has history of hypertension, hyperlipidemia, who came into the hospital with increasing shortness of breath. He is a former smoker. He does consume alcohol socially. He did not have any chest discomfort. His shortness of breath has improved remarkably. He is resting comfortably without symptoms. PAST MEDICAL HISTORY: 1. CAD with prior bypass surgery. 2. Past history of smoking and COPD. 3. Hypertension. 4. Hyperlipidemia. MEDICATIONS: Medications at home include: 1. Pravachol 20 mg daily. 2. Metoprolol succinate 25 mg daily. 3. HydroDIURIL 25 mg daily. 4. Lasix 40 mg daily. 5. Proscar 5 mg daily. 6. Plavix 75 mg daily. 7. Albuterol inhaler. PHYSICAL EXAMINATION: VITAL SIGNS: Blood pressure is 118/70, pulse rate is 75 per minute, regular. HEENT: Unremarkable. Fundus was not examined by me. NECK: Supple. There is JVD of at least 1 cm. No carotid bruit. HEART: Reveals S1, S2 heard normally. There is a short systolic murmur at the base. There is a holosystolic murmur at the apex increases on expiration. LUNGS: Reveal bilateral decent air entry. ABDOMEN: Soft, nontender. EXTREMITIES: Lower extremities reveal palpable pulses. No edema. CENTRAL NERVOUS SYSTEM: Normal. IMAGING STUDIES: EKG revealed a sinus mechanism with nonspecific ST abnormality. LABORATORY DATA: Reveals that his BNP is 3420. Troponins are unremarkable at 0.03 flat. His kidney function is abnormal at 1.76. IMPRESSION: 1. Exacerbation of systolic heart failure. 2. Probable mitral regurgitation and aortic stenosis. I believe regurgitation may be more significant than stenosis. 3. Past history of smoking and chronic obstructive pulmonary disease. 4. Chronic kidney disease. 5. Hyperlipidemia. RECOMMENDATIONS: I am recommending that we continue the diuresis. I will also add losartan 25 mg daily, obtain echocardiogram to assess LV function and based on this, we will make further recommendations. I discussed my thoughts in detail with the patient. Thank you very much for the consult. MMODL / IJN: [id number] /
[2022-04-11] MEDS: HEPARIN SODIUM,PORCINE/PF 5,000 UNIT/0.5 ML SYRINGE SQ SCH ×2 (10:40→21:10)
[2022-04-11] MEDS: IPRATROPIUM-ALBUTEROL 3 ML NEB INHALATION SCH ×3 (11:40→20:13)
[2022-04-11 15:35] VITALS: RESP 18
--- NOTE | 2022-04-11 16:29 | P.PN ---
Subjective Progress Note Date: 04/11/22 Hospital course: Patient is a very pleasant 86-year-old male with a past medical history of CAD status post CABG 4, hypertension, hyperlipidemia, and COPD home oxygen dependent on 3 L at all times. He presented to the emergency department on 04/10/22 with a chief complaint of shortness of breath and lower extremity swelling. Patient reported increased shortness of breath over the past few days despite use of home oxygen and inhalers. Patient reported in addition to worsening shortness of breath he also noted to have swelling in his legs which also gradually increased along with a nonproductive cough so he came to the emergency department for evaluation. Patient underwent full evaluation in the emergency department. Labs completed and upon review CBC showing normocytic anemia with hemoglobin of 8.7 (no previous labs available for comparison to determine baseline). Coagulation profile unremarkable. BMP revealing elevated renal function with BUN of 23, creatinine 1.68, and GFR of 36. Liver profile unremarkable. Troponin elevated at 0.039 and proBNP also elevated at 3420. Influenza A, influenza B, RSV, and Covid PCR were all negative. Patient was admitted under our services with consultation to bilingual social worker and automation mechanic. Troponins trended resulting in 0.039, 0.038, and 0.032. Physical exam: Patient seen and fully evaluated at bedside this morning. Patient visiting with grandson at bedside. Patient reports feeling much better since arrival to our facility. Respirations even, regular, and unlabored on 3 L O2. Patient did have noted by basilar crackles upon auscultation as well as coarse nonproductive cough during assessment. Patient denies having any headache, lightheadedness, dizziness, chest pain, palpitations, or any other complaints at this time. Morning labs reviewed and revealing normocytic anemia with hemoglobin of 8.0 and slightly worsening renal function with BUN of 25, creatinine 1.76, and GFR of 34. We will continue to monitor closely with repeat a.m. labs. Patient denies having any noted bruising or bleeding including melena or hematochezia. Vital signs reviewed and stable. General: Nontoxic, no distress and appears stated age. Derm: Skin warm and dry, normal coloration for ethnicity. Head: Atraumatic, normocephalic and symmetric. Heart of hearing Eyes: EOMs intact, no lid lag, and anicteric sclera Mouth: no lip lesions, mucus membranes moist Cardiovascular: regular rate and rhythm with normal S1S2, systolic murmur, positive posterior tibial pulses bilaterally, and cap refill < 2 seconds. Lungs: Respirations even, regular, and unlabored on 3 L O2 via nasal cannula. Lungs with basilar crackles. No wheezes. No accessory muscle usage. Abdominal: soft, nontender to palpation, no guarding, no appreciable organomegaly Ext: ROM intact. No gross muscle atrophy, 1+ pitting edema to bilateral lower e xtremity, no contractures Neuro: Speech clear, face symmetrical and CN II-XII grossly intact with no noted focal neuro deficits Psych: Alert and oriented to person, place, time, and situation. Appropriate and pleasant affect. Assessment and Plan of Care: Acute exacerbation of chronic heart failure, unclear type pending echocardiogram Elevated troponins Coronary artery disease status post CABG 4 Hypertension Hyperlipidemia -Cardiology following, added on losartan daily medication regimen. -Telemetry monitoring -Troponins elevated at 0.039, 0.038, and 0.032. Troponins flat and likely elevated secondary to CHF exacerbation. -ProBNP 3420 -Daily weights -Close monitoring of I's and O's -Cardiac diet -Lasix 40 mg IVP twice daily -Continuation of daily cardiac medications including: Aspirin, Plavix, hydrochlorothiazide, metoprolol, and pravastatin. -Echocardiogram to be completed -Continued close monitoring of electrolytes while diuresing. COPD, home oxygen dependent on 3 L. Not in acute exacerbation. -Continue oxygenation and titrate as needed to maintain SpO2 greater than 90%. -Continue scheduled inhaler with fluticasone/salmeterol along with Ventolin inhaler as needed for wheezing/shortness of breath. -Pulmonary following. BPH -Patient will require close monitoring of I's and O's while diuresing. Home medications reviewed and reordered and patient to continue daily finasteride. CODE STATUS: Full code DVT prophylaxis: Heparin Discussed with: Patient, patient's grandson, and RN Anticipated discharge date: Clinical course to determine Anticipated discharge place: Home A total of 36 minutes was spent on the care of this complex patient more than 50% of the time was spent in counseling and care coordination. Praful Rivas NP rendered care for this patient independently, reviewed the findings and plan as documented in the note above. I did not physically speak with or examine the patient on this date. Objective - Vital Signs Vital signs: Vital Signs Temp 97.7 F 04/11/22 07:21 Pulse 66 04/11/22 07:21 Resp 16 04/11/22 07:21 BP 126/85 04/11/22 07:21 Pulse Ox 97 04/11/22 07:21 FiO2 Intake & Output 04/10/22 04/11/22 04/11/22 18:59 06:59 18:59 Weight 74.389 kg - Labs CBC & Chem 7: 04/11/22 03:54 04/11/22 03:54 Labs: Abnormal Lab Results - Last 24 Hours (Table) 04/10/22 04/10/22 04/10/22 Range/Units 21:08 21:08 21:08 RBC 2.89 L (4.30-5.90) m/uL Hgb 8.7 L (13.0-17.5) gm/dL Hct 27.1 L (39.0-53.0) % Lymphocytes # (Manual) 0.82 L (1.0-4.8) k/uL BUN 23 H (9-20) mg/dL Creatinine 1.68 H (0.66-1.25) mg/dL Calcium (8.4-10.2) mg/dL Troponin I 0.039 H* (0.000-0.034) ng/mL 04/11/22 04/11/22 04/11/22 Range/Units 00:30 03:54 03:54 RBC 2.70 L (4.30-5.90) m/uL Hgb 8.0 L (13.0-17.5) gm/dL Hct 25.6 L (39.0-53.0) % Lymphocytes # (Manual) (1.0-4.8) k/uL BUN 25 H (9-20) mg/dL Creatinine 1.76 H (0.66-1.25) mg/dL Calcium 8.1 L (8.4-10.2) mg/dL Troponin I 0.038 H* (0.000-0.034) ng/mL
[2022-04-11] MEDS: SYMBICORT 80-4.5 MCG INHALER INHALATION SCH (19:09)
[2022-04-11] MEDS ORDERED: SYMBICORT 80-4.5 MCG INHALER INHALATION SCH (20:00)
[2022-04-11] MEDS: SYMBICORT 160-4.5 MCG INHALER INHALATION SCH (20:13)
[2022-04-12] MEDS: HEPARIN SODIUM,PORCINE/PF 5,000 UNIT/0.5 ML SYRINGE SQ SCH ×4 (01:07→23:37)
[2022-04-12] MEDS: hydroCHLOROthiazide 25 MG TAB PO SCH (08:39)
[2022-04-12] MEDS: FUROSEMIDE 10 MG/ML 4 ML VIAL IV SCH (08:39)
[2022-04-12] MEDS: PRAVASTATIN SODIUM 20 MG TAB PO SCH (08:40)
[2022-04-12] MEDS: LOSARTAN 25 MG TAB PO SCH (08:40)
[2022-04-12] MEDS: FINASTERIDE 5 MG TAB PO SCH (08:40)
[2022-04-12] MEDS: METOPROLOL SUCCINATE (ER) 25 MG TAB.ER.24H PO SCH (08:41)
[2022-04-12] MEDS: CLOPIDOGREL 75 MG TAB PO SCH (08:41)
--- NOTE | 2022-04-12 08:54 | CA ---
Transthoracic Echo Report Name: Rowdy Talamantes Age: 86 Gender: M : 1935 Exam Date: 04/11/2022 14:07 Exam Location: [facility] Ht (in): 60 Wt (lb): 165 Ordering Physician: Florian Jaquez MD Attending/Referring Phys: Search Engine Optimization Analyst Arlene Brooks RDCS Procedure CPT: Indications: chf Cardiac Hx: Technical Quality: Contrast 1: Total Dose (mL): Contrast 2: Total Dose (mL): MEASUREMENTS (Male / Female) Normal Values 2D ECHO LV Diastolic Diameter PLAX 4.0 cm 4.2 - 5.9 / 3.9 - 5.3 cm LV Systolic Diameter PLAX 3.5 cm IVS Diastolic Thickness 1.4 cm 0.6 - 1.0 / 0.6 - 0.9 cm LVPW Diastolic Thickness 1.7 cm 0.6 - 1.0 / 0.6 - 0.9 cm LV Relative Wall Thickness 0.8 RV Internal Dim ED PLAX 2.8 cm LA Systolic Diameter LX 4.7 cm 3.0 - 4.0 / 2.7 - 3.8 cm LA Volume 100.2 cm??? 18 - 58 / 22 - 52 cm??? M-MODE Aortic Root Diameter MM 3.1 cm LA Systolic Diameter MM 4.6 cm LA Ao Ratio MM 1.5 MV E Point Septal Separation 0.4 cm DOPPLER AV Peak Velocity 190.2 cm/s AV Peak Gradient 14.5 mmHg AV Mean Velocity 111.8 cm/s AV Mean Gradient 5.9 mmHg AV Velocity Time Integral 27.9 cm MV Area PHT 3.8 cm??? Mitral E Point Velocity 77.5 cm/s Mitral A Point Velocity 72.1 cm/s Mitral E to A Ratio 1.1 MV Deceleration Time 201.4 ms MV E' Velocity 8.6 cm/s Mitral E to MV E' Ratio 9.0 TR Peak Velocity 342.7 cm/s TR Peak Gradient 47.0 mmHg Right Ventricular Systolic Press 52.0 mmHg FINDINGS Left Ventricle Moderately increased septal wall thickness. Left ventricular ejection fraction is estimated at 55-60%.left ventricular cavity size normal. Right Ventricle Normal right ventricular size and function. Moderate pulmonary hypertension. Right ventricular systolic pressure estimated at 52 mm hg. Right Atrium Normal right atrial size. Left Atrium Moderately increased left atrial diameter. Severely increased left atrial volume. Mildly increased left atrial area. Mitral Valve Mitral annular calcification. Mild mitral regurgitation. Aortic Valve Trileaflet aortic valve. Mild aortic stenosis with a peak gradient of 15 mmHg and a mean gradient of 6 mmHg. severely calcified aortic valve, the gradient could have been underestimated Tricuspid Valve Structurally normal tricuspid valve. Mild tricuspid regurgitation. Pulmonic Valve Pulmonic valve not well visualized. Pericardium Normal pericardium. Aorta Normal size aortic root and proximal ascending aorta. CONCLUSIONS Technically difficult study. 1. Normal ventricle size and systolic function 2. Mild mitral and tricuspid regurgitation with moderate pulmonary hypertension 3. Severely calcified aortic valve with a mean gradient of 6 mmHg, the severity of the aortic stenosis could have been underestimated. Previewed by: Dr. Kt Herndon MD (Electronically Signed) Final Date: 12 April 2022 08:53
[2022-04-12] MEDS: IPRATROPIUM-ALBUTEROL 3 ML NEB INHALATION SCH ×4 (09:18→20:36)
[2022-04-12] MEDS: SYMBICORT 80-4.5 MCG INHALER INHALATION SCH (09:18)
[2022-04-12] MEDS: SYMBICORT 160-4.5 MCG INHALER INHALATION SCH ×2 (09:22→20:36)
[2022-04-12 09:44] VITALS: BMI 23.1
[2022-04-12 09:55] LABS: Calcium 8.2 mg/dL (8.4-10.2); Potassium 3.6 mmol/L (3.5-5.1)
[2022-04-12 10:17] LABS: Basophils # (A) 0.1 k/uL (0-0.2); Basophils % (A) 1 %; Eosinophils # (A) 0.4 k/uL (0-0.7); Eosinophils % (A) 7 %; HCT 27.9 % (39.0-53.0); Hypochromasia Marked; Lymphocytes # (A) 0.9 k/uL (1.0-4.8); Lymphocytes % (A) 17 %; MCH 27.3 pg (25.0-35.0); MCHC 28.8 g/dL (31.0-37.0); MCV 94.9 fL (80.0-100.0); Mean Platelet Volume 10.3; Monocytes # (A) 0.6 k/uL (0-1.0); Monocytes % (A) 11 %; Neutrophils # (A) 3.3 k/uL (1.3-7.7); Neutrophils % (A) 60 %; Platelet Count 181 k/uL (150-450); Poikilocytosis Slight; RBC 2.94 m/uL (4.30-5.90); RDW 14.5 % (11.5-15.5); WBC 5.5 k/uL (3.8-10.6)
[2022-04-12 14:05] LABS: Hypochromasia (M) Present
--- NOTE | 2022-04-12 14:20 | P.PN ---
Subjective Progress Note Date: 04/12/22 Hospital course: Patient is a very pleasant 86-year-old male with a past medical history of CAD status post CABG 4, hypertension, hyperlipidemia, and COPD home oxygen dependent on 3 L at all times. He presented to the emergency department on 04/10/22 with a chief complaint of shortness of breath and lower extremity swelling. Patient reported increased shortness of breath over the past few days despite use of home oxygen and inhalers. Patient reported in addition to worsening shortness of breath he also noted to have swelling in his legs which also gradually increased along with a nonproductive cough so he came to the emergency department for evaluation. Patient underwent full evaluation in the emergency department. Labs completed and upon review CBC showing normocytic anemia with hemoglobin of 8.7 (no previous labs available for comparison to determine baseline). Coagulation profile unremarkable. BMP revealing elevated renal function with BUN of 23, creatinine 1.68, and GFR of 36. Liver profile unremarkable. Troponin elevated at 0.039 and proBNP also elevated at 3420. Influenza A, influenza B, RSV, and Covid PCR were all negative. Patient was admitted under our services with consultation to general helper and maintenance mechanic telephone. Troponins trended resulting in 0.039, 0.038, and 0.032. Echocardiogram completed showing a preserved EF of 55-60% with mild mitral and tricuspid regurgitation, moderate pulmonary hypertension, and a severely calcified aortic valve. Physical exam: Patient seen and fully evaluated at bedside this morning. He was resting comfortably and his daughter was at bedside. Overnight patient with increased oxygenation needs up to 5 L O2. This was reportedly weaned down to 2 L after patient awakening and moving around this morning. Patient has a documented 625 mL of urinary output over the past 24 hours. He continues to desat with exertion. He reportedly had oxygen saturations dropped to 81% with ambulation to the bathroom. Currently patient on 2 L O2 via nasal cannula with SpO2 of 94%. Morning labs reviewed showing no significant changes. Hemoglobin remained stable at 8.0 and renal function stable with BUN 22, creatinine 1.70 and GFR of 35. Electrolytes normal findings. Echocardiogram completed showing a preserved EF of 55-60% with mild mitral and tricuspid regurgitation, moderate pulmonary hypertension, and a severely calcified aortic valve. Patient reports breathing is better and continues to deny having any complaints including headache, lightheadedness, dizziness, chest pain, palpitations, or experiencing any numbness/tingling/weakness in his extremities. Vital signs reviewed and stable. General: Nontoxic, no distress and appears stated age. Derm: Skin warm and dry, normal coloration for ethnicity. Head: Atraumatic, normocephalic and symmetric. Heart of hearing Eyes: EOMs intact, no lid lag, and anicteric sclera Mouth: no lip lesions, mucus membranes moist Cardiovascular: regular rate and rhythm with normal S1S2, systolic murmur, positive posterior tibial pulses bilaterally, and cap refill < 2 seconds. Lungs: Respirations even, regular, and unlabored on 2 L O2 via nasal cannula. Lungs with basilar crackles. No wheezes. No accessory muscle usage. Abdominal: soft, nontender to palpation, no guarding, no appreciable organomegaly Ext: ROM intact. No gross muscle atrophy, 1+ pitting edema to bilateral lower extremity, no contractures Neuro: Speech clear, face symmetrical and CN II-XII grossly intact with no noted focal neuro deficits Psych: Alert and oriented to person, place, time, and situation. Appropriate and pleasant affect. Assessment and Plan of Care: Acute exacerbation of chronic diastolic heart failure Elevated troponins Coronary artery disease status post CABG 4 Hypertension Hyperlipidemia -Cardiology following, appreciate additional recommendations -Telemetry monitoring -Troponins elevated at 0.039, 0.038, and 0.032. Troponins flat and likely elevated secondary to CHF exacerbation. -ProBNP 3420 -Daily weights -Close monitoring of I's and O's -Cardiac diet -Lasix 40 mg IVP twice daily -Continuation of daily cardiac medications including: Aspirin, Plavix, hydrochlorothiazide, metoprolol, losartan and pravastatin. -Echocardiogram completed showing a preserved EF of 55-60% with mild mitral and tricuspid regurgitation, moderate pulmonary hypertension, and a severely calcified aortic valve. -Continued close monitoring of electrolytes while diuresing. COPD, home oxygen dependent on 3 L. Not in acute exacerbation. -Continue oxygenation and titrate as needed to maintain SpO2 greater than 90%. -Continue scheduled inhaler with fluticasone/salmeterol along with Ventolin inhaler as needed for wheezing/shortness of breath. -Pulmonary following. BPH -Patient will require close monitoring of I's and O's while diuresing. Home medications reviewed and reordered and patient to continue daily finasteride. CODE STATUS: Full code DVT prophylaxis: Heparin Discussed with: Patient, patient's daughter, and RN Anticipated discharge date: Clinical course to determine Anticipated discharge place: Home A total of 34 minutes was spent on the care of this complex patient more than 50% of the time was spent in counseling and care coordination. Objective - Vital Signs Vital signs: Vital Signs Temp 98.1 F 04/12/22 04:00 Pulse 62 04/12/22 04:00 Resp 18 04/12/22 04:00 BP 119/71 04/12/22 04:00 Pulse Ox 95 04/12/22 04:00 FiO2 Intake & Output 04/11/22 04/12/22 04/12/22 18:59 06:59 18:59 Intake Total 240 240 Output Total 625 Balance -385 240 Weight 73 kg Intake: Oral 240 240 Output: Urine 625 - Labs CBC & Chem 7: 04/12/22 08:25 04/12/22 08:25
--- NOTE | 2022-04-12 15:07 | P.PN ---
Subjective Progress Note Date: 04/12/22 78-year-old male seen in the emergency room,, room 21. Lucy boss, on April 10. He apparently presented to the emergency room, complaining of shortness of breath. It been going on for at least a couple days prior to admission, and maybe even a week or so. His primary care physician is Dr. Mitchel Bergeron. The patient states that his chest filled up with fluid. Currently, he is on 3 L of oxygen. He's not having any respiratory distress or difficulty. There is no conversational dyspnea, or use of accessory muscles. He apparently is also been having a nonproductive cough, and some lower extremity edema. His past medical history includes CAD, COPD, hearing impairment, hypertension, osteoarthritis, hyperlipidemia, glaucoma, and eczema. The patient has had a previous bypass grafting. White count 5.7, hemoglobin 8, hematocrit 25.6, platelet count normal. Coagulation studies were normal. Sodium 138, potassium 3.8, chlorides 106, CO2 29, BUN 25, creatinine 1.76. Troponins were 0.039, 0.038, and 0.032. N-terminal proBNP was elevated at 3420. Testing for influenza, RSV, and coronavirus are all negative. Chest x-ray is positive for CHF, with small bilateral effusions. The patient is seen today 04/12/2022 in follow-up on the selective care unit. He is currently resting comfortably in bed. Awake and alert in no acute distress. Maintaining O2 saturations in the 90s on 2 L/m per nasal cannula. Preserved left ventricular systolic function with ejection fraction 55-60%. There is severely calcified aortic valve with a mean gradient of 6 mmHg. Moderate pulmonary hypertension. White count 5.5. Hemoglobin 8.0. Platelets 181. Sodium 138. Potassium 3.6. BUN 22. Creatinine 1.70. Glucose 108. He is continued on Symbicort, DuoNeb inhalations, oral diuretics. Heparin for DVT prophylaxis. Currently in a negative balance. Objective - Vital Signs Vital signs: Vital Signs Temp 97.9 F 04/12/22 11:57 Pulse 75 04/12/22 12:21 Resp 18 04/12/22 14:00 BP 100/49 04/12/22 11:57 Pulse Ox 94 L 04/12/22 11:57 FiO2 Intake & Output 12/04/12/22 04/12/22 18:59 06:59 18:59 Intake Total 240 240 180 Output Total 625 350 Balance -385 240 -170 Weight 73 kg 73 kg Intake: Oral 240 240 180 Output: Urine 625 350 - Exam GENERAL EXAM: Alert, pleasant 86-year-old male patient, on 2 L nasal cannula, comfortable in no apparent distress. HEAD: Normocephalic. EYES: Normal reaction of pupils, equal size. NOSE: Clear with pink turbinates. THROAT: No erythema or exudates. NECK: No masses, no JVD. CHEST: No chest wall deformity. LUNGS: Equal air entry with bibasilar crackles. CVS: S1 and S2 normal with no audible murmur, regular rhythm. ABDOMEN: No hepatosplenomegaly, normal bowel sounds, no guarding or rigidity. SPINE: No scoliosis or deformity SKIN: No rashes CENTRAL NERVOUS SYSTEM: No focal deficits, tone is normal in all 4 extremities. EXTREMITIES: There is no peripheral edema. No clubbing, no cyanosis. Peripheral pulses are intact. - Labs CBC & Chem 7: 04/12/22 08:25 04/12/22 08:25 Labs: Abnormal Lab Results - Last 24 Hours (Table) 04/12/22 04/12/22 Range/Units 08:25 08:25 RBC 2.94 L (4.30-5.90) m/uL Hgb 8.0 L (13.0-17.5) gm/dL Hct 27.9 L (39.0-53.0) % MCHC 28.8 L (31.0-37.0) g/dL Lymphocytes # 0.9 L (1.0-4.8) k/uL Carbon Dioxide 35 H (22-30) mmol/L BUN 22 H (9-20) mg/dL Creatinine 1.70 H (0.66-1.25) mg/dL Glucose 108 H (74-99) mg/dL Calcium 8.2 L (8.4-10.2) mg/dL Assessment and Plan Assessment: Acute hypoxemic respiratory failure secondary to acute exacerbation of diastolic congestive heart failure, severe aortic calcification. Severely calcified aortic valve with a mean gradient of 6 mmHg Moderate pulmonary hypertension History of COPD, not thought to be particularly active at this time. Prior history of heavy tobacco use. History of CAD with previous bypass grafting, 2011. History of osteoarthritis. History of hypertension. History of hyperlipidemia. Hearing impairment. History of glaucoma. Him: The patient was seen and evaluated Echocardiogram, labs and medications reviewed Continue DuoNeb inhalations and Symbicort Titrate the FiO2 as tolerated Continue diuretics We will continue to follow I have personally seen and examined the patient, performed the documentation of the assessment and plan as written. Number of minutes spent on the visit: 10.
[2022-04-12] MEDS ORDERED: POTASSIUM CHLORIDE ER 20 MEQ TAB.ER PO STA (15:43)
[2022-04-12] MEDS ORDERED: FUROSEMIDE 40 MG TAB PO SCH (16:00)
--- NOTE | 2022-04-13 00:58 | PN ---
PROGRESS NOTE SUBJECTIVE: This is an 86-year-old gentleman with a history of previous bypass surgery more than 15 years ago, came into the hospital with increasing shortness of breath, was found to be in congestive heart failure. Echo was a suboptimal study. There appears to be some increased velocity across aortic valve, but the aortic gradient was not well quantified. There was also mitral regurgitation, which is not very well quantified. Technically difficult study. However, with IV Lasix, he is feeling much better. He has home oxygen 2 to 4 L. On room air, O2 saturation actually was in the low 90s, but with activity, saturation came down. I am recommending that we will switch him from IV to oral Lasix, increase activity, and he can be discharged. The patient is being considered for a carotid surgery, but I have no information in this regard as to the rationale for the operation or his cardiac risk. Risk is definitely high given his age and congestive heart failure. However, the patient is going to be evaluated at for possible carotid surgery. From a cardiac standpoint same medical regimen, switch him from IV to oral Lasix, increase activity and he can be discharged later on today and I will see him in the office in 3 weeks. OBJECTIVE: VITAL SIGNS: Stable. NECK: JVD 1 cm. No carotid bruit. S1 and S2 heard normally. Ejection systolic murmur is audible at the base and a holosystolic murmur audible at the apex. LUNGS: Reveal improved air entry. ABDOMEN: Unchanged. LOWER EXTREMITIES: Unchanged. PLAN: Plan is to switch IV to oral Lasix, increase activity, and discharge him today. MMODL / IJN: [id number] /
[2022-04-13] MEDS: IPRATROPIUM-ALBUTEROL 3 ML NEB INHALATION SCH ×2 (07:00→11:04)
[2022-04-13] MEDS: SYMBICORT 160-4.5 MCG INHALER INHALATION SCH (07:00)
[2022-04-13 08:36] LABS: Potassium 3.8 mmol/L (3.5-5.1)
[2022-04-13] MEDS ORDERED: POTASSIUM CHLORIDE ER 20 MEQ TAB.ER PO SCH (09:00)
[2022-04-13] MEDS ORDERED: FUROSEMIDE 40 MG TAB PO SCH (09:00)
[2022-04-13] MEDS: HEPARIN SODIUM,PORCINE/PF 5,000 UNIT/0.5 ML SYRINGE SQ SCH (09:58)
--- NOTE | 2022-04-13 09:58 | P.DS ---
Providers Date of admission: 04/10/22 22:47 Expected date of discharge: 04/13/22 Attending physician: Ana Shahid MD Consults: 04/10/22 22:44 Consult Physician Routine Consulting Provider: Rafael Barbour Consult Reason/Comments: chronic lung disease, pleural effusions Do you want consulting provider notified?: Yes Consult Physician Routine Consulting Provider: [facility] Consult Reason/Comments: chf, elevated troponin Do you want consulting provider notified?: Yes Primary care physician: Mitchel Bergeron Hospital Course: Discharge Diagnosis: Acute exacerbation of chronic diastolic heart failure, patient underwent successful IV diuresis, evaluated by cardiology and had echocardiogram completed. Echocardiogram revealed a preserved EF of 55-60% with mild mitral and tricuspid regurgitation, moderate pulmonary hypertension, and a severely calcified aortic valve. Patient being discharged home on Lasix 40 mg daily, Plavix, metoprolol, hydrochlorothiazide, and losartan. Patient given prescription to have repeat BMP in 1 week to follow up and monitor closely renal function since being discharged home on 2 separate diuretics (Lasix and hydrochlorothiazide) along with losartan per cardiology. Elevated troponins, secondary to acute exacerbation of chronic diastolic heart failure. Acute coronary event ruled out. Patient to follow up outpatient with physiologist on 04/25/22. Coronary artery disease status post CABG 4 Hypertension Hyperlipidemia COPD, home oxygen dependent on 3 L. Not in acute exacerbation. Continue use of home oxygen along with scheduled inhaler with fluticasone/salmeterol along with Ventolin inhaler as needed for wheezing/shortness of breath. [facility] Hospital Course: Patient is a very pleasant 86-year-old male with a past medical history of CAD status post CABG 4, hypertension, hyperlipidemia, and COPD home oxygen dependent on 3 L at all times. He presented to the emergency department on 04/10/22 with a chief complaint of shortness of breath and lower extremity swelling. Patient reported increased shortness of breath over the past few days despite use of home oxygen and inhalers. Patient reported in addition to worsening shortness of breath he also noted to have swelling in his legs which also gradually increased along with a nonproductive cough so he came to the emergency department for evaluation. Patient underwent full evaluation in the emergency department. Labs completed and upon review CBC showing normocytic anemia with hemoglobin of 8.7 (no previous labs available for comparison to determine baseline). Coagulation profile unremarkable. BMP revealing elevated renal function with BUN of 23, creatinine 1.68, and GFR of 36. Liver profile unremarkable. Troponin elevated at 0.039 and proBNP also elevated at 3420. Influenza A, influenza B, RSV, and Covid PCR were all negative. Patient was admitted under our services with consultation to physiologist and tenant relations coordinator. Troponins trended resulting in 0.039, 0.038, and 0.032. Echocardiogram completed showing a preserved EF of 55-60% with mild mitral and tricuspid regurgitation, moderate pulmonary hypertension, and a severely calcified aortic valve. Patient underwent successful IV diuresis. He was evaluated by cardiology and cleared for outpatient follow-up in our office on 04/25/21 as scheduled. Patient reports full resolution of previously reported shortness of breath and denies having any other complaints or concerns. He has had full resolution of lower extremity edema. Patient is medically stable at this time and stable for outpatient follow-up with PCP and cardiology as discussed. Discharge instructions discussed with patient and patient's daughter and all questions answered at this time. Physical exam: Vital signs reviewed and stable. General: Nontoxic, no distress and appears stated age. Derm: Skin warm and dry, normal coloration for ethnicity. Head: Atraumatic, normocephalic and symmetric. Heart of hearing Eyes: EOMs intact, no lid lag, and anicteric sclera Mouth: no lip lesions, mucus membranes moist Cardiovascular: regular rate and rhythm with normal S1S2, systolic murmur, positive posterior tibial pulses bilaterally, and cap refill < 2 seconds. Lungs: Respirations even, regular, and unlabored on 2 L O2 via nasal cannula. Lungs with basilar crackles. No wheezes. No accessory muscle usage. Abdominal: soft, nontender to palpation, no guarding, no appreciable organomegaly Ext: ROM intact. No gross muscle atrophy, 1+ pitting edema to bilateral lower extremity, no contractures Neuro: Speech clear, face symmetrical and CN II-XII grossly intact with no noted focal neuro deficits Psych: Alert and oriented to person, place, time, and situation. Appropriate and pleasant affect. A total of 33 minutes of time were spent preparing this complex discharge summary. Pt was discharged on 04/13/22 at 9:57 AM. Patient Condition at Discharge: Stable Plan - Discharge Summary Discharge Rx Participant: No New Discharge Prescriptions: New Losartan [Cozaar] 25 mg PO DAILY 60 Days #60 tab Continue Finasteride [Proscar] 5 mg PO DAILY Fluticasone Propion/Salmeterol [Fluticasone-Salmeterol 250-50] 1 puff INHALATION RT-BID Albuterol Inhaler [Ventolin Hfa Inhaler] 2 puff INHALATION RT-Q6H PRN #1 each PRN Reason: Shortness Of Breath hydroCHLOROthiazide [Hydrodiuril] 25 mg PO DAILY PRN PRN Reason: Edema Furosemide [Lasix] 40 mg PO DAILY Clopidogrel [Plavix] 75 mg PO DAILY Metoprolol Succinate [Metoprolol Succinate ER] 25 mg PO DAILY Pravastatin Sodium [Pravachol] 20 mg PO DAILY Discontinued Oxaprozin [Daypro] 600 mg PO DAILY Discharge Medication List Finasteride [Proscar] 5 mg PO DAILY 11/26/17 [History] Clopidogrel [Plavix] 75 mg PO DAILY 04/10/22 [History] Fluticasone Propion/Salmeterol [Fluticasone-Salmeterol 250-50] 1 puff INHALATION RT-BID 04/10/22 [History] Furosemide [Lasix] 40 mg PO DAILY 04/10/22 [History] Metoprolol Succinate [Metoprolol Succinate ER] 25 mg PO DAILY 04/10/22 [History] Pravastatin Sodium [Pravachol] 20 mg PO DAILY 04/10/22 [History] hydroCHLOROthiazide [Hydrodiuril] 25 mg PO DAILY PRN 04/10/22 [History] Albuterol Inhaler [Ventolin Hfa Inhaler] 2 puff INHALATION RT-Q6H PRN #1 each 04/13/22 [Rx] Losartan [Cozaar] 25 mg PO DAILY 60 Days #60 tab 04/13/22 [Rx] Follow up Appointment(s)/Referral(s): Seema Donaldson MD [STAFF PHYSICIAN] - 04/25/22 2:45 pm Mitchel Bergeron MD [Primary Care Provider] - 1-2 days (PLEASE CALL AND SCHEDULE APPOINTMENT.) Rafael Barbour DO [Doctor of Osteopathic Medicine] - 1 Week Ambulatory/Diagnostic Orders: Basic Metabolic Panel [LAB.AMB] Time Frame: 1 Week, Location: None Selected Patient Instructions/Handouts: Albuterol (By breathing), Losartan (By mouth), Heart Failure (DC) Activity/Diet/Wound Care/Special Instructions: Activity: As tolerated. Take breaks as needed. Diet: Heart healthy and carb consistent diet. Avoid salts, or foods with hidden salts such as canned or boxed foods and frozen dinners. Extra salt makes your heart work harder and traps the fluid in your body for longer. Special Instructions: Weigh yourself every morning after you urinate. If you gain 3 pounds overnight or more than 5 pounds in one week, call your primary physician and physiologist for guidance on your medications or they may want to see you in their office. Keep a daily log of your weights and be sure to bring with you at follow up visits with your PCP and physiologist. Take all of your medications as directed, especially your water pills. NEVER skip a dose. And remember to keep all of your doctor's appointments and follow- up as needed. Elevate your legs when you are not up moving around to help with circulation and prevent swelling. Compression stockings are also a great way to improve lower extremity circulation and prevent/improve lower extremity edema. Call your primary care provider and physiologist if you notice any extra swelling in your legs, ankles, feet or abdomen, if you have a new dry cough, if your shortness of breath worsens with activity or at rest, or if you feel more fatigued. Wishing you a very happy and healthy and FIESTY New Year!! Thank you for allowing us to participate in your care, it was truly a pleasure having you for our patient!!! Discharge Disposition: HOME SELF-CARE
[2022-04-13] MEDS: FINASTERIDE 5 MG TAB PO SCH (09:59)
[2022-04-13] MEDS: LOSARTAN 25 MG TAB PO SCH (09:59)
[2022-04-13] MEDS: METOPROLOL SUCCINATE (ER) 25 MG TAB.ER.24H PO SCH (09:59)
[2022-04-13] MEDS: hydroCHLOROthiazide 25 MG TAB PO SCH (09:59)
[2022-04-13] MEDS: PRAVASTATIN SODIUM 20 MG TAB PO SCH (09:59)
[2022-04-13] MEDS: CLOPIDOGREL 75 MG TAB PO SCH (09:59)
[2022-04-13 10:12] VITALS: BP 108/57; TEMP 96.6
[2022-04-13 11:13] VITALS: PULSE 80
--- NOTE | 2022-04-13 14:00 | P.PN ---
Subjective Progress Note Date: 04/13/22 78-year-old male seen in the emergency room,, room 21. Lucy boss, on April 10. He apparently presented to the emergency room, complaining of shortness of breath. It been going on for at least a couple days prior to admission, and maybe even a week or so. His primary care physician is Dr. Mitchel Bergeron. The patient states that his chest filled up with fluid. Currently, he is on 3 L of oxygen. He's not having any respiratory distress or difficulty. There is no conversational dyspnea, or use of accessory muscles. He apparently is also been having a nonproductive cough, and some lower extremity edema. His past medical history includes CAD, COPD, hearing impairment, hypertension, osteoarthritis, hyperlipidemia, glaucoma, and eczema. The patient has had a previous bypass grafting. White count 5.7, hemoglobin 8, hematocrit 25.6, platelet count normal. Coagulation studies were normal. Sodium 138, potassium 3.8, chlorides 106, CO2 29, BUN 25, creatinine 1.76. Troponins were 0.039, 0.038, and 0.032. N-terminal proBNP was elevated at 3420. Testing for influenza, RSV, and coronavirus are all negative. Chest x-ray is positive for CHF, with small bilateral effusions. The patient is seen today 04/12/2022 in follow-up on the selective care unit. He is currently resting comfortably in bed. Awake and alert in no acute distress. Maintaining O2 saturations in the 90s on 2 L/m per nasal cannula. Preserved left ventricular systolic function with ejection fraction 55-60%. There is severely calcified aortic valve with a mean gradient of 6 mmHg. Moderate pulmonary hypertension. White count 5.5. Hemoglobin 8.0. Platelets 181. Sodium 138. Potassium 3.6. BUN 22. Creatinine 1.70. Glucose 108. He is continued on Symbicort, DuoNeb inhalations, oral diuretics. Heparin for DVT prophylaxis. Currently in a negative balance. The patient is seen today 04/13/2022 in follow-up on the selective care unit. He is currently sitting up at the bedside. Getting dressed and anxious to go home. Denies any worsening shortness of breath, cough or congestion. Continue on Symbicort, DuoNeb inhalation, oral diuretics. Sodium 134. Potassium 3.8. Bicarb 33. BUN 24. Creatinine 1.83. Objective - Vital Signs Vital signs: Vital Signs Temp 96.6 F L 04/13/22 08:20 Pulse 80 04/13/22 11:13 Resp 18 04/13/22 08:20 BP 108/57 04/13/22 08:20 Pulse Ox 100 04/13/22 08:20 FiO2 Intake & Output 04/12/22 04/13/22 04/13/22 18:59 06:59 18:59 Intake Total 420 118 Output Total 750 825 Balance -330 -825 118 Weight 73 kg Intake: Oral 420 118 Output: Urine 750 825 Other: Voiding Method Urinal - Exam GENERAL EXAM: Alert, 86-year-old male patient, on room air, comfortable in no apparent distress. HEAD: Normocephalic. EYES: Normal reaction of pupils, equal size. NOSE: Clear with pink turbinates. THROAT: No erythema or exudates. NECK: No masses, no JVD. CHEST: No chest wall deformity. LUNGS: Equal air entry with bibasilar crackles. CVS: S1 and S2 normal with no audible murmur, regular rhythm. ABDOMEN: No hepatosplenomegaly, normal bowel sounds, no guarding or rigidity. SPINE: No scoliosis or deformity SKIN: No rashes CENTRAL NERVOUS SYSTEM: No focal deficits, tone is normal in all 4 extremities. EXTREMITIES: There is no peripheral edema. No clubbing, no cyanosis. Peripheral pulses are intact. - Labs CBC & Chem 7: 04/12/22 08:25 04/13/22 06:51 Labs: Abnormal Lab Results - Last 24 Hours (Table) 04/12/22 04/13/22 Range/Units 08:25 06:51 Lymphocytes # 0.9 L (1.0-4.8) k/uL Sodium 134 L (137-145) mmol/L Chloride 97 L (98-107) mmol/L Carbon Dioxide 33 H (22-30) mmol/L BUN 24 H (9-20) mg/dL Creatinine 1.83 H (0.66-1.25) mg/dL Calcium 8.0 L (8.4-10.2) mg/dL Assessment and Plan Assessment: Acute hypoxemic respiratory failure secondary to acute exacerbation of diastolic congestive heart failure, severe aortic calcification. Severely calcified aortic valve with a mean gradient of 6 mmHg Moderate pulmonary hypertension History of COPD, not thought to be particularly active at this time. Prior history of heavy tobacco use. History of CAD with previous bypass grafting, 2012. History of osteoarthritis. History of hypertension. History of hyperlipidemia. Hearing impairment. History of glaucoma. Him: The patient was seen and evaluated Medications and labs reviewed Cleared for discharge from the pulmonary standpoint Would benefit from a follow-up in our office in 1-2 weeks' I have personally seen and examined the patient, performed the documentation of the assessment and plan as written. Number of minutes spent on the visit: 10.
--- NOTE | 2022-04-13 21:13 | PN ---
PROGRESS NOTE SUBJECTIVE: This gentleman has history of CAD, prior bypass surgery, mitral regurgitation, and also some aortic regurgitation and aortic stenosis. Echo was of suboptimal quality, could not get good view of aortic valve. However, with diuresis, he has improved. I am recommending he can be discharged on current medical regimen. I will see him in the office in 2 to 3 weeks. He is considering carotid surgery. OBJECTIVE: VITAL SIGNS: Stable. NECK: No JVD. HEART: S1 and S2 heard normally. A holosystolic murmur at the apex and a short systolic murmur at the base. LUNGS: Clear. ABDOMEN: Unchanged. LOWER EXTREMITIES: Unchanged. The patient can be discharged today. MMODL / IJN: [id number] /
== END 2022-04-13 12:18 | disposition home or self-care (01) | DRG 291 ==
LOC: EC 20:00 → 3SCARD 22:47
PROVIDERS: ADMIT Internal Medicine; ATTEND Internal Medicine
DX: I13.0 Hypertensive heart and chronic kidney disease with heart failure and stage 1 through stage 4 chronic kidney disease, or unspecified chronic kidney disease (principal); I50.43 Acute on chronic combined systolic (congestive) and diastolic (congestive) heart failure; J96.21 Acute and chronic respiratory failure with hypoxia; N17.9 Acute kidney failure, unspecified; I08.3 Combined rheumatic disorders of mitral, aortic and tricuspid valves; I27.20 Pulmonary hypertension, unspecified; N18.9 Chronic kidney disease, unspecified; D63.1 Anemia in chronic kidney disease; E11.22 Type 2 diabetes mellitus with diabetic chronic kidney disease; E78.5 Hyperlipidemia, unspecified; H91.90 Unspecified hearing loss, unspecified ear; I25.10 Atherosclerotic heart disease of native coronary artery without angina pectoris; I48.91 Unspecified atrial fibrillation; I70.0 Atherosclerosis of aorta; Z86.16 Personal history of COVID-19; H40.9 Unspecified glaucoma; J44.9 Chronic obstructive pulmonary disease, unspecified; N40.0 Benign prostatic hyperplasia without lower urinary tract symptoms; Z79.02 Long term (current) use of antithrombotics/antiplatelets; Z79.899 Other long term (current) drug therapy; Z87.891 Personal history of nicotine dependence; Z95.1 Presence of aortocoronary bypass graft; Z99.81 Dependence on supplemental oxygen; Z71.3 Dietary counseling and surveillance; Z28.311 Partially vaccinated for COVID-19
CPT/HCPCS: 36415; 71046; 80048; 80053; 83605; 83735; 83880; 84484; 85025; 85610; 85730; 87636; 93005; 93306; 94640; 94760; 96372; 96374; 96375; 96376; 99285

== ENCOUNTER → 2022-04-10 | Outpatient (CLI) | payer MEDICARE ==
--- NOTE | 2022-04-10 18:05 | CT ---
EXAMINATION TYPE: CT chest wo con CT DLP: 286.7 mGycm, Automated exposure control for dose reduction was used. DATE OF EXAM: 04/10/2022 5:47 PM COMPARISON: CLINICAL INDICATION:Male, 86 years old with history of J90 PLEURAL EFFUSION. TECHNIQUE: Multiple axial images were obtained through the chest. Sagittal and coronal reformats were created for review. Contrast used: none. Oral contrast used: none. FINDINGS: LUNGS/ PLEURA: Calcified plaques most pronounced in the right lung base but also affecting the left l gloria. Trace bilateral pleural effusions some of which are loculated within the fissures. Masslike appe arance within the lingula extends towards the periphery as well as in the right lung base. Unclear wh ether this is atelectasis versus underlying mass. AIRWAY: Patent and unremarkable. HEART: Measures mildly enlarged for size. There is severe coronary artery atherosclerosis. MEDIASTINUM: No gross evidence of adenopathy. VASCULATURE: No aortic aneurysm. Anatomic variant left pulmonary artery origin is from the right pul monary artery and encircles the distal trachea. Pulmonary projecting at the upper limits normal at 3. 4 cm MUSCULOSKELETAL: No acute osseous abnormalities, sternotomy wires are present. SOFT TISSUES/LYMPH NODES: Mild gynecomastia changes bilaterally. LOWER NECK: No significant findings. UPPER ABDOMEN: Left renal cyst. Calcified granuloma is in the spleen. Scattered clonic diverticula. IMPRESSION: 1. Bilateral calcified pleural plaques with trace bilateral pleural effusions. Similar pleural effus ion is loculated within the major fissures. Findings suggestive of prior history of asbestos exposure . There is loculated fluid within the major fissures bilaterally. 2. Masslike consolidation within the right lung base and lingula could represent atelectasis versus other etiologies. Care comparisons with priors at outside institutions would be of benefit. Consider short-term follow-up imaging and/or PET/CT. 3. Anatomic variant left pulmonary artery sling.
== END | disposition home or self-care (01) ==
LOC: RADCTMAIN 17:18
PROVIDERS: ATTEND Family Medicine
DX: J90 Pleural effusion, not elsewhere classified (principal); J92.9 Pleural plaque without asbestos; Q25.79 Other congenital malformations of pulmonary artery
CPT/HCPCS: 71250

== ENCOUNTER → 2022-04-10 | Outpatient (CLI) | payer MEDICARE | END | disposition home or self-care (01) | LOC: LABMAIN 18:32 | PROVIDERS: ATTEND Family Medicine | DX: Z53.9 Procedure and treatment not carried out, unspecified reason (principal) ==

== ENCOUNTER 2022-07-13 02:10 | Emergency (ER) | payer MEDICARE ==
[2022-07-13] MEDS ORDERED: SODIUM CHLORIDE 0.9% 1,000 ML IV STA (02:13)
[2022-07-13] MEDS ORDERED: PANTOPRAZOLE 40 MG/10 ML VIAL IVP STA (02:13)
[2022-07-13 02:20] VITALS: RESP 16
--- NOTE | 2022-07-13 02:56 | ED ---
General Adult HPI - General Chief complaint: GI Bleed Stated complaint: GI Bleed Time Seen by Provider: 07/13/22 02:12 Source: family, RN notes reviewed, old records reviewed Mode of arrival: EMS - History of Present Illness Initial comments: 86 yo female who presents for evaluation of vomiting blood and melanotic stool. Patient had several episodes of dark stool today and then just prior to arrival patient had vomited coffee-ground emesis with some bright red blood according to paramedics. He is on aspirin and Plavix. He denies abdominal pain. He states he felt somewhat lightheaded and had a syncopal episode earlier in the day. - Related Data Home Medications Medication Instructions Recorded Confirmed Finasteride [Proscar] 5 mg PO DAILY 11/26/17 04/10/22 Clopidogrel [Plavix] 75 mg PO DAILY 04/10/22 04/10/22 Fluticasone Propion/Salmeterol 1 puff INHALATION RT-BID 04/10/22 04/10/22 [Fluticasone-Salmeterol 250-50] Furosemide [Lasix] 40 mg PO DAILY 04/10/22 04/10/22 Metoprolol Succinate [Metoprolol 25 mg PO DAILY 04/10/22 04/10/22 Succinate ER] Pravastatin Sodium [Pravachol] 20 mg PO DAILY 04/10/22 04/10/22 hydroCHLOROthiazide [Hydrodiuril] 25 mg PO DAILY PRN 04/10/22 04/10/22 Previous Rx's Medication Instructions Recorded Albuterol Inhaler [Ventolin Hfa 2 puff INHALATION RT-Q6H PRN #1 04/13/22 Inhaler] each Losartan [Cozaar] 25 mg PO DAILY 60 Days #60 tab 04/13/22 Allergies Allergy/AdvReac Type Severity Reaction Status Date / Time No Known Allergies Allergy Verified 04/10/22 22:39 Review of Systems ROS Statement: Those systems with pertinent positive or pertinent negative responses have been documented in the HPI. ROS Other: All systems not noted in ROS Statement are negative. Past Medical History Past Medical History: Coronary Artery Disease (CAD), COPD, Eye Disorder, Hearing Disorder / Deafness, Hypertension, Osteoarthritis (OA), Prostate Disorder, Skin Disorder Additional Past Medical History / Comment(s): GLAUCOMA, EYE PROB R/T WELDING WORK. RT CTS. ECZEMA History of Any Multi-Drug Resistant Organisms: None Reported Past Surgical History: Coronary Bypass/CABG, Hernia Repair, Prostate Surgery Additional Past Surgical History / Comment(s): QUAD CABG 2012 EST. EYE SURGERIES. ING HERNIA W/ MESH. Past Anesthesia/Blood Transfusion Reactions: No Reported Reaction Past Psychological History: No Psychological Hx Reported Past Alcohol Use History: Heavy Past Drug Use History: None Reported - Past Family History Father Family Medical History: Cancer General Exam General appearance: alert, in no apparent distress Head exam: Present: atraumatic, normocephalic Eye exam: Present: normal appearance, PERRL ENT exam: Present: other (Blood on lips and tongue) Respiratory exam: Present: normal lung sounds bilaterally. Absent: respiratory distress, wheezes Cardiovascular Exam: Present: regular rate, normal rhythm GI/Abdominal exam: Present: soft. Absent: distended, tenderness, guarding Extremities exam: Present: normal inspection, normal capillary refill. Absent: pedal edema Neurological exam: Present: alert, oriented X3, CN II-XII intact. Absent: motor sensory deficit Psychiatric exam: Present: normal affect, normal mood Skin exam: Present: warm, dry, intact. Absent: cyanosis, diaphoretic Course Vital Signs 07/13/22 07/13/22 02:12 03:50 Temperature 97.9 F Pulse Rate 78 75 Respiratory 16 Rate Blood Pressure 98/54 110/56 O2 Sat by Pulse 100 99 Oximetry - Reevaluation(s) Reevaluation #2: 07/13/22 03:43 Patient reevaluated, no further episodes of vomiting. Blood pressure stable, heart rate in the 70s. Reevaluation #3: 07/13/22 04:[address] Nixon, and the gastroenterology fellow at [facility] EKG Findings - EKG Comments: EKG Findings:: EKG: Ventricular rate 74, MD interval 191, QRS duration 100, QTC [address] segment elevation. Medical Decision Making - Medical Decision Making Was pt. sent in by a medical professional or institution (, PA, LINING STITCHER, urgent care, hospital, or custodial...) When possible be specific @ -[No] Did you speak to anyone other than the patient for history (EMS, parent, family, police, friend...)? What history was obtained from this source @ -[Patient is hard of hearing and some history obtained from the son] Did you review nursing and triage notes (agree or disagree)? Why? @ -[I reviewed and agree with nursing and triage notes] Were old charts reviewed (outside hosp., previous admission, EMS record, old EKG, old radiological studies, urgent care reports/EKG's, custodial records)? Report findings @ -[Reviewed previous hemoglobin] Differential Diagnosis (chest pain, altered mental status, abdominal pain women, abdominal pain men, vaginal bleeding, weakness, fever, dyspnea, syncope, headache, dizziness, GI bleed, back pain, seizure, CVA, palpatations, mental health, musculoskeletal)? @ -[Differential GI Bleed: Esophageal varices, aortoenteric fistula, Meghana-Mccurdy, gastritis, peptic ulcer disease, diverticulosis, inflammatory bowel disease, hemorrhoids, fissure, colitis, malignancy, Meckels diverticulum, this is not meant to be an all- inclusive list.] EKG interpreted by me (3pts min.). @ -[As above] X-rays interpreted by me (1pt min.). @ -[None done] CT interpreted by me (1pt min.). @ -[None done] U/S interpreted by me (1pt. min.). @ -[None done] What testing was considered but not performed or refused? (CT, X-rays, U/S, labs)? Why? @ -[None] What meds were considered but not given or refused? Why? @ -[None] Did you discuss the management of the patient with other professionals (professionals i.e. , PA, LINING STITCHER, lab, RT, psych nurse, social services manager, sampler pickup, teacher, event security officer, case mgr)? Give summary @ -[Case discussed with directional driller at [facility] Was smoking cessation discussed for >3mins.? @ -[No] Was critical care preformed (if so, how long)? @ -[No] Were there social determinants of health that impacted care today? How? (Homelessness, low income, unemployed, alcoholism, drug addiction, transport ation, low edu. Level, literacy, decrease access to med. care, usp, rehab)? @ -[No] Was there de-escalation of care discussed even if they declined (Discuss DNR or withdrawal of care, Hospice)? DNR status @ -[No] What co-morbidities impacted this encounter? (DM, HTN, Smoking, COPD, CAD, Cancer, CVA, ARF, Chemo, Hep., AIDS, mental health diagnosis, sleep apnea, morbid obesity)? @ -[None] Was patient admitted / discharged? Hospital course, mention meds given and route, prescriptions, significant lab abnormalities, going to OR and other pertinent info. @ -[86-year-old male with suspected upper GI bleed, coffee-ground emesis and melanotic stool. Blood pressure and heart rate are stable. Patient is on aspirin and Plavix. Patient given 80 mg of Protonix in the emergency department. CBC reveals normal white blood cell count, hemoglobin of 10 with recent from 3 months prior at 8 which is improved. Patient will require a gastroenterology evaluation for suspected upper GI bleed and this institution does not currently have gastroenterology. I did speak with the ER physician and gastroenterology fellow at [facility]. Patient will be transferred to [facility]. Undiagnosed new problem with uncertain prognosis? @ -[No] Drug Therapy requiring intensive monitoring for toxicity (Heparin, Nitro, Insulin, Cardizem)? @ -[No] Were any procedures done? @ -[No] Diagnosis/symptom? @ -[Upper GI bleed, anemia] Acute, or Chronic, or Acute on Chronic? @ -[Acute] Uncomplicated (without systemic symptoms) or Complicated (systemic symptoms)? @ -[Complicated] Side effects of treatment? @ -[No] Exacerbation, Progression, or Severe Exacerbation? @ -[No] Poses a threat to life or bodily function? How? (Chest pain, USA, CT, pneumonia, PE, COPD, DKA, ARF, appy, cholecystitis, CVA, Diverticulitis, Homicidal, Suicidal, threat to staff... and all critical care pts) @ -[Risk of gastric intestinal hemorrhage, hemorrhagic shock - Lab Data Result diagrams: 07/13/22 02:31 07/13/22 02:31 Lab Results 07/13/22 07/13/22 07/13/22 Range/Units 02:29 02: 02:31 WBC 10.2 (3.8-10.6) k/uL RBC 3.52 L (4.30-5.90) m/uL Hgb 10.0 L (13.0-17.5) gm/dL Hct 30.8 L (39.0-53.0) % MCV 87.4 (80.0-100.0) fL MCH 28.3 (25.0-35.0) pg MCHC 32.4 (31.0-37.0) g/dL RDW 16.8 H (11.5-15.5) % Plt Count 152 (150-450) k/uL MPV 9.4 Neutrophils % 70 % Lymphocytes % 12 % Monocytes % 13 % Eosinophils % 1 % Basophils % 0 % Neutrophils # 7.2 (1.3-7.7) k/uL Lymphocytes # 1.2 (1.0-4.8) k/uL Monocytes # 1.3 H (0-1.0) k/uL Eosinophils # 0.1 (0-0.7) k/uL Basophils # 0.0 (0-0.2) k/uL Anisocytosis Slight PT 11.6 (9.0-12.0) sec INR 1.1 (<1.2) APTT 19.6 L (22.0-30.0) sec Sodium (137-145) mmol/L Potassium (3.5-5.1) mmol/L Chloride (98-107) mmol/L Carbon Dioxide (22-30) mmol/L Anion Gap mmol/L BUN (9-20) mg/dL Creatinine (0.66-1.25) mg/dL Est GFR (CKD-EPI)AfAm (>60 ml/min/1.73 sqM) Est GFR (CKD-EPI)NonAf (>60 ml/min/1.73 sqM) Glucose (74-99) mg/dL Calcium (8.4-10.2) mg/dL Magnesium (1.6-2.3) mg/dL Total Bilirubin (0.2-1.3) mg/dL AST (17-59) U/L ALT (4-49) U/L Alkaline Phosphatase (38-126) U/L Total Protein (6.3-8.2) g/dL Albumin (3.5-5.0) g/dL Blood Type A Negative Blood Type Confirm Blood Type Recheck No Previous Record Bld Type Recheck Status CABO Indicated Antibody Screen NEGATIVE Spec Expiration Date 07/16/2022 - 232807/13/2207/13/23 Range/Units 02:31 02:34 WBC (3.8-10.6) k/uL RBC (4.30-5.90) m/uL Hgb (13.0-17.5) gm/dL Hct (39.0-53.0) % MCV (80.0-100.0) fL MCH (25.0-35.0) pg MCHC (31.0-37.0) g/dL RDW (11.5-15.5) % Plt Count (150-450) k/uL MPV Neutrophils % % Lymphocytes % % Monocytes % % Eosinophils % % Basophils % % Neutrophils # (1.3-7.7) k/uL Lymphocytes # (1.0-4.8) k/uL Monocytes # (0-1.0) k/uL Eosinophils # (0-0.7) k/uL Basophils # (0-0.2) k/uL Anisocytosis PT (9.0-12.0) sec INR (<1.2) APTT (22.0-30.0) sec Sodium 139 (137-145) mmol/L Potassium 4.8 (3.5-5.1) mmol/L Chloride 105 (98-107) mmol/L Carbon Dioxide 23 (22-30) mmol/L Anion Gap 11 mmol/L BUN 74 H (9-20) mg/dL Creatinine 1.85 H (0.66-1.25) mg/dL Est GFR (CKD-EPI)AfAm 37 (>60 ml/min/1.73 sqM) Est GFR (CKD-EPI)NonAf 32 (>60 ml/min/1.73 sqM) Glucose 164 H (74-99) mg/dL Calcium 7.9 L (8.4-10.2) mg/dL Magnesium 2.1 (1.6-2.3) mg/dL Total Bilirubin 0.6 (0.2-1.3) mg/dL AST 29 (17-59) U/L ALT 23 (4-49) U/L Alkaline Phosphatase 67 (38-126) U/L Total Protein 5.8 L (6.3-8.2) g/dL Albumin 3.0 L (3.5-5.0) g/dL Blood Type Blood Type Confirm A Negative Blood Type Recheck Bld Type Recheck Status Antibody Screen Spec Expiration Date Critical Care Time Critical Care Time: Yes Total Critical Care Time: 35 Disposition Clinical Impression: Upper GI bleed Disposition: OTHER INSTITUTION NOT DEFINED Condition: Stable Is patient prescribed a controlled substance at d/c from ED?: No Referrals: Mitchel Bergeron MD [Primary Care Provider] - 1-2 days Time of Disposition: 03:42 - Out of Hospital Transfer - Req. Specs Out of Hospital Transfer - Requested Specifics: Other Emergency Center ([facility]
[2022-07-13 03:09] LABS: Anisocytosis Slight; Basophils % (A) 0 %; Eosinophils # (A) 0.1 k/uL (0-0.7); Eosinophils % (A) 1 %; HCT 30.8 % (39.0-53.0); Lymphocytes # (A) 1.2 k/uL (1.0-4.8); Lymphocytes % (A) 12 %; MCH 28.3 pg (25.0-35.0); MCHC 32.4 g/dL (31.0-37.0); MCV 87.4 fL (80.0-100.0); Mean Platelet Volume 9.4; Monocytes # (A) 1.3 k/uL (0-1.0); Monocytes % (A) 13 %; Neutrophils # (A) 7.2 k/uL (1.3-7.7); Neutrophils % (A) 70 %; Platelet Count 152 k/uL (150-450); RBC 3.52 m/uL (4.30-5.90); RDW 16.8 % (11.5-15.5); WBC 10.2 k/uL (3.8-10.6)
[2022-07-13 03:30] LABS: INR 1.1 (<1.2); Prothrombin Time 11.6 sec (9.0-12.0)
[2022-07-13 03:37] LABS: Calcium 7.9 mg/dL (8.4-10.2); Magnesium 2.1 mg/dL (1.6-2.3); Potassium 4.8 mmol/L (3.5-5.1); Total Bilirubin 0.6 mg/dL (0.2-1.3); Total Protein 5.8 g/dL (6.3-8.2)
[2022-07-13 03:46] LABS: Partial Thromboplastin Time 19.6 sec (22.0-30.0)
[2022-07-13 03:50] VITALS: PULSE 75
[2022-07-13 03:51] VITALS: TEMP 97.9
[2022-07-13 05:24] VITALS: BP 107/52
== END 2022-07-13 05:28 | disposition other institution (70) ==
LOC: EC 02:10
DX: K92.2 Gastrointestinal hemorrhage, unspecified (principal); I25.10 Atherosclerotic heart disease of native coronary artery without angina pectoris; J44.9 Chronic obstructive pulmonary disease, unspecified; I10 Essential (primary) hypertension; M19.90 Unspecified osteoarthritis, unspecified site; Z79.899 Other long term (current) drug therapy; Z79.51 Long term (current) use of inhaled steroids
CPT/HCPCS: 36415; 93005; 86900; 86901; 80053; 83735; 85025; 85610; 85730; 86850; 99291; 96374; 96361 ×3; C9113

== ENCOUNTER 2022-11-05 12:34 | Inpatient (IN) | payer MEDICARE ==
--- NOTE | 2022-11-05 13:41 | XR ---
EXAMINATION TYPE: XR chest 2V DATE OF EXAM: 11/05/2022 1:36 PM COMPARISON: Chest radiographs from 04/10/2022 TECHNIQUE: XR chest 2V Frontal and lateral views of the chest. CLINICAL INDICATION:Male, 87 years old with history of dyspnea; FINDINGS: Lungs/Pleura: There is no evidence of pleural effusion, focal consolidation, or pneumothorax. Pulmonary vascularity: Pulmonary vascular congestion. Heart/mediastinum: Cardiomediastinal silhouette is enlarged and stable. Musculoskeletal: No acute osseous pathology. Midline sternotomy wires are noted. IMPRESSION: Cardiomegaly, pulmonary vascular congestion and bilateral pleural effusions. Correlate with BNP for c ongestive heart failure.
--- NOTE | 2022-11-05 13:48 | ED ---
General Adult HPI - General Chief complaint: Shortness of Breath Stated complaint: URSZULA Time Seen by Provider: 11/05/22 12:49 Source: patient, family Mode of arrival: wheelchair - History of Present Illness Initial comments: Dictation was produced using [employer] dictation software. please excuse any grammatical, word or spelling errors. Chief Complaint: 87-year-old male presents with dyspnea History of Present Illness: To 87-year-old male sent in from oncology office. His history of non-Hodgkin's lymphoma. He was sent here for evaluation of dyspnea. Patient is accompanied by grandson states that he's been lethargic and dyspneic. He has history of pleural effusion and heart failure. Patient states that he's been having progressive dyspnea with exertion. Denies any fever. No chest pain. Denies any cough The ROS documented in this emergency department record has been reviewed and confirmed by me. Those systems with pertinent positive or negative responses have been documented in the HPI. All other systems are other negative and/or noncontributory. - Related Data Home Medications Medication Instructions Recorded Confirmed Finasteride [Proscar] 5 mg PO DAILY 11/26/17 11/05/22 Clopidogrel [Plavix] 75 mg PO DAILY 04/10/22 11/05/22 Furosemide [Lasix] 40 mg PO DAILY 04/10/22 11/05/22 Atorvastatin [Lipitor] 80 mg PO DIRECTED 11/05/22 11/05/22 Cyanocobalamin (Vitamin B-12) 5,000 mcg PO DAILY 11/05/22 11/05/22 [Vitamin B-12] Ferrous Sulfate [Feosol] 325 mg PO DAILY 11/05/22 11/05/22 Fluticasone Nasal [place] [Flonase 1 spray EA NOSTRIL DAILY PRN 11/05/22 11/05/22 Nasal [place]] Fluticasone/Umeclidin/Vilanter 1 puff INHALATION RT-DAILY PRN 11/05/22 11/05/22 [Trelegy Ellipta 200-62.5-25] Folic Acid 1 mg PO DAILY 11/05/22 11/05/22 Metoprolol Tartrate [Lopressor] 25 mg PO BID 11/05/22 11/05/22 Omeprazole 20 mg PO BID 11/05/22 11/05/22 Pegfilgrastim-Jmdb [Fulphila] 6 mg SQ Q21D 11/05/22 11/05/22 Prochlorperazine [Compazine] 10 mg PO Q6H PRN 11/05/22 11/05/22 Sucralfate [Carafate] 1 gm PO TID@0800,1400,2000 11/05/22 11/05/22 allopurinoL [Zyloprim] 300 mg PO DAILY 11/05/22 11/05/22 predniSONE 100 mg PO DAILY PRN 11/05/22 11/05/22 traMADol HCL 50 mg PO Q6H PRN 11/05/22 11/05/22 valACYclovir HCL [Valtrex] 500 mg PO DAILY 11/05/22 11/05/22 Previous Rx's Medication Instructions Recorded Albuterol Inhaler [Ventolin Hfa 2 puff INHALATION RT-Q6H PRN #1 04/13/22 Inhaler] each Allergies Allergy/AdvReac Type Severity Reaction Status Date / Time No Known Allergies Allergy Verified 11/05/22 13:45 Review of Systems ROS Statement: Those systems with pertinent positive or pertinent negative responses have been documented in the HPI. ROS Other: All systems not noted in ROS Statement are negative. Past Medical History Past Medical History: Coronary Artery Disease (CAD), COPD, Eye Disorder, Hearing Disorder / Deafness, Hypertension, Osteoarthritis (OA), Prostate Disorder, Skin Disorder Additional Past Medical History / Comment(s): GLAUCOMA, EYE PROB R/T WELDING WORK. RT CTS. ECZEMA History of Any Multi-Drug Resistant Organisms: None Reported Past Surgical History: Coronary Bypass/CABG, Hernia Repair, Prostate Surgery Additional Past Surgical History / Comment(s): QUAD CABG 2011 EST. EYE SURGERIES. ING HERNIA W/ MESH. carotid stent august 2022 Past Anesthesia/Blood Transfusion Reactions: No Reported Reaction Past Psychological History: No Psychological Hx Reported Smoking Status: Former smoker Past Alcohol Use History: Daily Past Drug Use History: None Reported - Past Family History Father Family Medical History: Cancer General Exam - General Exam Comments Initial Comments: PHYSICAL EXAM: General Impression: Alert and oriented x3, not in acute distress HEENT: Normocephalic atraumatic, extra-ocular movements intact, pupils equal and reactive to light bilaterally, mucous membranes moist. Cardiovascular: Heart regular rate and rhythm Chest: Able to complete full sentences, no retractions, no tachypnea, diffuse lung crackles Abdomen: abdomen soft, non-tender, non-distended, no organomegaly Musculoskeletal: Pulses present and equal in all extremities, no peripheral edema Motor: no focal deficits noted Neurological: CN II-XII grossly intact, no focal motor or sensory deficits noted Skin: Intact with no visualized rashes Psych: Normal affect and mood Course Vital Signs 11/05/22 11/05/22 11/05/22 12:38 13:08 14:36 Temperature 99 F Pulse Rate 81 81 Respiratory 20 20 18 Rate Blood Pressure 100/59 114/67 O2 Sat by Pulse 97 100 Oximetry EKG Findings - EKG Comments: EKG Findings:: My EKG interpretation: Ventricular rate 77, sinus rhythm,. 186, QRS 90, QTC 42. No WI prolongation, no QTC prolongation, no ST or T-wave changes noted. Overall, this EKG is unremarkable Medical Decision Making - Medical Decision Making Was pt. sent in by a medical professional or institution (, PA, DOUBLE END TENON OPERATOR, urgent care, hospital, or shelter...) When possible be specific @ -No Did you speak to anyone other than the patient for history (EMS, parent, family, police, friend...)? What history was obtained from this source @ -No Did you review nursing and triage notes (agree or disagree)? Why? @ -I reviewed and agree with nursing and triage notes Were old charts reviewed (outside hosp., previous admission, EMS record, old EKG, old radiological studies, urgent care reports/EKG's, shelter records)? Report findings @ -No old charts were reviewed Differential Diagnosis (chest pain, altered mental status, abdominal pain women, abdominal pain men, vaginal bleeding, musculoskeletal, weakness, fever, dyspnea, syncope, headache, dizziness, GI bleed, back pain, seizure, CVA, palpatations, mental health)? @ -Differential Dyspnea: Coronary syndrome, arrhythmia, tamponade, asthma, COPD, pulmonary embolism, pneumonia, pneumothorax, pulmonary effusion, anaphylaxis, diabetic ketoacidosis, flailed chest, pulmonary contusion, diaphragmatic rupture, anemia, neuromuscular, this is not meant to be an all-inclusive list. EKG interpreted by me (3pts min.). @ -See above X-rays interpreted by me (1pt min.). @ -Pulmonary vascular congestion on chest x-ray CT interpreted by me (1pt min.). @ -None done U/S interpreted by me (1pt. min.). @ -None done What testing was considered but not performed or refused? (CT, X-rays, U/S, labs)? Why? @ -None What meds were considered but not given or refused? Why? @ -None Did you discuss the management of the patient with other professionals (professionals i.e. DrGeorgie, PA, DOUBLE END TENON OPERATOR, lab, RT, psych nurse, social science analyst, marketing ambassador, teacher, security flex utility officer, human services case manager)? Give summary @ -No Was smoking cessation discussed for >3mins.? @ -No Was critical care preformed (if so, how long)? @ -yes, 33 minutes Were there social determinants of health that impacted care today? How? (Homelessness, low income, unemployed, alcoholism, drug addiction, transportation, low edu. Level, literacy, decrease access to med. care, alf, rehab)? @ -No Was there de-escalation of care discussed even if they declined (Discuss DNR or withdrawal of care, Hospice)? DNR status @ -No What co-morbidities impacted this encounter? (DM, HTN, Smoking, COPD, CAD, Cancer, CVA, ARF, Chemo, Hep., AIDS, mental health diagnosis, sleep apnea, morbid obesity)? @ -History of cardiac disease Was patient admitted / discharged? Hospital course, mention meds given and route, prescriptions, significant lab abnormalities, going to OR and other pertinent info. @ -87-year-old male presents emergency department with symptoms consistent with congestive heart failure. History of CHF. Vital signs upon arrival shows findings within acceptable limits. His percent on room air while at rest. Blood pressure is within acceptable limits. Laboratory evaluation exacerbation shows leukocytosis 20.7. Unclear significance. Denies any cough or other localizing infectious symptoms. Metabolic panel is unremarkable. Troponin is 1.100. Pending urinalysis and blood culture. Case discussed with hospitalist for admission. Pending discussion with cardiology regarding patient's elevated troponin Undiagnosed new problem with uncertain prognosis? @ -No Drug Therapy requiring intensive monitoring for toxicity (Heparin, Nitro, Insulin, Cardizem)? @ -No Were any procedures done? @ -No Diagnosis/symptom? Acute, or Chronic, or Acute on Chronic? Uncomplicated (without systemic symptoms) or Complicated (systemic symptoms)? @ -NSTEMI, chf exacerbation Side effects of treatment? @ -No Exacerbation, Progression, or Severe Exacerbation? @ -No Poses a threat to life or bodily function? How? (Chest pain, USA, [place], pneumonia, PE, COPD, DKA, ARF, appy, cholecystitis, CVA, Diverticulitis, Homicidal, Suicidal, threat to staff... and all critical care pts) @ -Yes - Lab Data Result diagrams: 11/05/22 13:42 11/05/22 13:42 Lab Results 11/05/22 11/05/22 11/05/22 Range/Units 13:42 13:42 13:42 WBC 28.7 H (3.8-10.6) k/uL RBC 3.59 L (4.30-5.90) m/uL Hgb 11.1 L (13.0-17.5) gm/dL Hct 35.0 L (39.0-53.0) % MCV 97.5 (80.0-100.0) fL MCH 30.8 (25.0-35.0) pg MCHC 31.6 (31.0-37.0) g/dL RDW 18.2 H (11.5-15.5) % Plt Count 101 L (150-450) k/uL MPV 9.0 Neutrophils % (Manual) 72 % Band Neuts % (Manual) 16 % Lymphocytes % (Manual) 2 % Monocytes % (Manual) 8 % Metamyelocytes % 2 % Neutrophils # (Manual) 25.20 H (1.3-7.7) k/uL Lymphocytes # (Manual) 0.57 L (1.0-4.8) k/uL Monocytes # (Manual) 2.30 H (0-1.0) k/uL Metamyelocytes # (Man) 0.57 H (0) k/uL Nucleated RBCs 0 (0-0) /100 WBC Hypochromasia Marked Anisocytosis Slight Macrocytosis Slight Sodium 137 (137-145) mmol/L Potassium 4.3 (3.5-5.1) mmol/L Chloride 101 (98-107) mmol/L Carbon Dioxide 34 H (22-30) mmol/L Anion Gap 2 mmol/L BUN 36 H (9-20) mg/dL Creatinine 1.13 (0.66-1.25) mg/dL Est GFR (CKD-EPI)AfAm 67 (>60 ml/min/1.73 sqM) Est GFR (CKD-EPI)NonAf 58 (>60 ml/min/1.73 sqM) Glucose 130 H (74-99) mg/dL Calcium 8.4 (8.4-10.2) mg/dL Total Bilirubin 0.6 (0.2-1.3) mg/dL AST 38 (17-59) U/L ALT 16 (4-49) U/L Alkaline Phosphatase 94 (38-126) U/L Troponin I 1.100 H* (0.000-0.034) ng/mL NT-Pro-B Natriuret Pep 7830 pg/mL Total Protein 5.8 L (6.3-8.2) g/dL Albumin 3.0 L (3.5-5.0) g/dL Disposition Clinical Impression: NSTEMI (non-ST elevated myocardial infarction) Disposition: ADMITTED IP TO THIS HOSP Condition: Fair Referrals: Mitchel Bergeron MD [Primary Care Provider] - 1-2 days Decision Time: 14:30
[2022-11-05 14:13] LABS: Anisocytosis Slight; HGB 11.1 gm/dL (13.0-17.5); Hypochromasia Marked; MCH 30.8 pg (25.0-35.0); MCHC 31.6 g/dL (31.0-37.0); MCV 97.5 fL (80.0-100.0); Macrocytosis Slight; Platelet Count 101 k/uL (150-450); RBC 3.59 m/uL (4.30-5.90); RDW 18.2 % (11.5-15.5); WBC 28.7 k/uL (3.8-10.6)
[2022-11-05 14:19] LABS: ALT 16 U/L (4-49); AST 38 U/L (17-59); African American GFR (CKD) 67 (>60 ml/min/1.73 sqM); Alkaline Phosphatase 94 U/L (38-126); Anion Gap 2 mmol/L; Blood Urea Nitrogen 36 mg/dL (9-20); Calcium 8.4 mg/dL (8.4-10.2); Carbon Dioxide 34 mmol/L (22-30); Chloride 101 mmol/L (98-107); Glucose 130 mg/dL (74-99); Non-African American GFR(CKD) 58 (>60 ml/min/1.73 sqM); Potassium 4.3 mmol/L (3.5-5.1); Sodium 137 mmol/L (137-145); Total Bilirubin 0.6 mg/dL (0.2-1.3); Total Protein 5.8 g/dL (6.3-8.2)
[2022-11-05 14:27] LABS: NT-Pro-B-Type Natriuretic Pept 7830 pg/mL
[2022-11-05 14:48] LABS: Band Neutrophils % 16 %; Lymphocytes # (M) 0.57 k/uL (1.0-4.8); Metamyelocytes # (M) 0.57 k/uL (0); Metamyelocytes % 2 %; Neutrophils % (M) 72 %; Nucleated Red Blood Cells 0 /100 WBC (0-0); Total Cells Counted 100
[2022-11-05] MEDS ORDERED: HEPARIN SODIUM 1,000 UN/ML (10ML VL) IV PRN (15:03)
[2022-11-05] MEDS ORDERED: HEPARIN SODIUM 1,000 UN/ML (10ML VL) IV ONE (15:03)
[2022-11-05] MEDS ORDERED: ASPIRIN 81 MG PO STA (15:03)
[2022-11-05] MEDS ORDERED: NITROGLYCERIN SL TABS 0.4 MG TAB SUBLINGUAL PRN (15:04)
[2022-11-05] MEDS ORDERED: HEPARIN SOD,PORK IN 0.45% NACL 25,000 UNIT in 0.45% NACL 1 250ML.BAG IV SCH (15:15)
[2022-11-05] MEDS ORDERED: VANCOMYCIN IV PER PHARMACY 1 EACH MISC MISCELLANE PRN (16:41)
[2022-11-05] MEDS ORDERED: VANCOMYCIN 1,500 MG in SODIUM CHLORIDE 0.9% 500 ML 500 ML IVPB ONE (17:00)
--- NOTE | 2022-11-05 17:43 | P.HPIM ---
History of Present Illness H&P Date: 11/05/22 87-year-old male with PMH of non-Hodgkin's lymphoma, COPD, CAD, history of carotid stenting, CHF, hypertension, GERD, BPH presents to the ED for shortness of breath has been progressively getting worse over the past week. He was at his oncologist appointment who urged him to go to the ED. He reports lower extremity edema. He denies any chest pain. He denies any headache, nausea or vomiting, fever or chills, cough, palpitations, changes in urination or bowel habits. No changes in appetite or weight. He denies any dizziness, numbness/weakness/tingling of the extremities. In the ED, his vital signs are stable. He did require upwards of 6 L nasal cannula to maintain O2 saturation in the 90s. CBC showed a CBC count 28.7 and hemoglobin of 11.1 with platelet count 101. CMP showed bicarb of 34, BUN of 36, glucose 130, albumin of 3. Troponin was 1.1. BNP was 7830. EKG showed sinus rhythm with ventricular rate of 77. Chest x-ray showed pulmonary vascular congestion and bilateral pleural effusion. Pertinent positives and negatives as discussed in HPI, a complete review of systems was performed and all other systems are negative. General: non toxic, no distress, appears at stated age Derm: warm, dry Head: atraumatic, normocephalic, symmetric Eyes: EOMI, no lid lag, anicteric sclera Cardiovascular: S1S2 reg, systolic murmur Lungs: CTA bilateral, no rhonchi, no rales , no accessory muscle use Abdominal: soft, nontender to palpation, no guarding, no appreciable organomegaly Ext: no gross muscle atrophy, 2+ bilateral lower extremity edema, no contractures Neuro: no focal neuro deficits Psych: Alert, oriented, appropriate affect Acute hypoxic respiratory failure CHF exacerbation Leukocytosis Troponin elevation Chronic conditions: non-Hodgkin's lymphoma, COPD, CAD, history of carotid stenting, CHF, hypertension, GERD, BPH Based on my assessment of this patient, this patient meets a high complexity level of care. Patient has an acute diagnosis of acute hypoxic respiratory failure secondary to CHF exacerbation that poses a threat to life or bodily function. Acute hypoxic respiratory failure secondary to CHF exacerbation: Start Lasix 40 mg IV BID. Strict intake and outtake. Daily weight. Echocardiogram. Cardiology consult. Leukocytosis: Patient does not meet sepsis criteria. Start Cefepime 1g IV TID empirically. Obtain BCx and UA with reflex to UCx. Telemetry monitoring. Troponin elevation: Started on heparin drip at 12 units/kg/hr. Start ASA, Plavix, Metoprolol and Lipitor. Trend Trop/EKG to rule out ACS. Son is the decision maker if he can't make decisions for himself. FULL CODE. Heparin drip for DVT prophylaxis. I have reviewed the following personal consultant notes: I have reviewed the results of the following tests: CBC, CMP, Troponin, BNP. I have ordered the following tests: Trop. Echocardiogram. I have discussed the care of this patient with the following independent historian: I have independently interpreted the following test below: EKG. CXR. I have discussed the management of this patient with the following physician: Past Medical History Past Medical History: Coronary Artery Disease (CAD), COPD, Eye Disorder, Hearing Disorder / Deafness, Hypertension, Osteoarthritis (OA), Prostate Disorder, Skin Disorder Additional Past Medical History / Comment(s): GLAUCOMA, EYE PROB R/T WELDING WORK. RT CTS. ECZEMA, non-hodgkin's lymphoma History of Any Multi-Drug Resistant Organisms: None Reported Past Surgical History: Coronary Bypass/CABG, Hernia Repair, Prostate Surgery Additional Past Surgical History / Comment(s): QUAD CABG 2011, EYE SURGERIES. ING HERNIA W/ MESH. carotid stent august 2022 Past Anesthesia/Blood Transfusion Reactions: No Reported Reaction Past Psychological History: No Psychological Hx Reported Smoking Status: Former smoker Past Alcohol Use History: Daily Additional Past Alcohol Use History / Comment(s): SMOKED MANY YEARS AGO, QUIT 1966. 3-5 BEERS DAILY. Past Drug Use History: None Reported - Past Family History Father Family Medical History: Cancer Medications and Allergies Home Medications Medication Instructions Recorded Confirmed Type Finasteride [Proscar] 5 mg PO DAILY 11/26/17 11/05/22 History Clopidogrel [Plavix] 75 mg PO DAILY 04/10/22 11/05/22 History Furosemide [Lasix] 40 mg PO DAILY 04/10/22 11/05/22 History Albuterol Inhaler [Ventolin Hfa 2 puff INHALATION RT-Q6H PRN #1 04/13/22 11/05/22 Rx Inhaler] each Atorvastatin [Lipitor] 80 mg PO DIRECTED 11/05/22 11/05/22 History Cyanocobalamin (Vitamin B-12) 5,000 mcg PO DAILY 11/05/22 11/05/22 History [Vitamin B-12] Ferrous Sulfate [Feosol] 325 mg PO DAILY 11/05/22 11/05/22 History Fluticasone Nasal [place] [Flonase 1 spray EA NOSTRIL DAILY PRN 11/05/22 11/05/22 History Nasal [place]] Fluticasone/Umeclidin/Vilanter 1 puff INHALATION RT-DAILY PRN 11/05/22 11/05/22 History [Trelegy Ellipta 200-62.5-25] Folic Acid 1 mg PO DAILY 11/05/22 11/05/22 History Metoprolol Tartrate [Lopressor] 25 mg PO BID 11/05/22 11/05/22 History Omeprazole 20 mg PO BID 11/05/22 11/05/22 History Pegfilgrastim-Jmdb [Fulphila] 6 mg SQ Q21D 11/05/22 11/05/22 History Prochlorperazine [Compazine] 10 mg PO Q6H PRN 11/05/22 11/05/22 History Sucralfate [Carafate] 1 gm PO TID@0800,1400,2000 11/05/22 11/05/22 History allopurinoL [Zyloprim] 300 mg PO DAILY 11/05/22 11/05/22 History predniSONE 100 mg PO DAILY PRN 11/05/22 11/05/22 History traMADol HCL 50 mg PO Q6H PRN 11/05/22 11/05/22 History valACYclovir HCL [Valtrex] 500 mg PO DAILY 11/05/22 11/05/22 History Allergies Allergy/AdvReac Type Severity Reaction Status Date / Time No Known Allergies Allergy Verified 11/05/22 13:45 Physical Exam Vitals: Vital Signs Temp Pulse Pulse Resp BP BP Pulse Ox 11/05/22 17:10 98.5 F 87 20 122/61 99 11/05/22 16:40 81 18 133/64 99 11/05/22 16:29 81 20 126/70 99 11/05/22 15:44 98.1 F 83 16 99 11/05/22 14:36 81 18 114/67 100 11/05/22 13:08 20 11/05/22 12:38 99 F 81 20 100/59 97 Intake and Output 11/05/22 11/05/22 11/05/22 06:59 14:59 22:59 Other: Weight 76.657 kg 76.657 kg Results CBC & Chem 7: 11/05/22 13:42 11/05/22 13:42 Labs: Abnormal Lab Results - Last 24 Hours (Table) 11/05/22 11/05/22 11/05/22 Range/Units 13:42 13:42 13:42 WBC 28.7 H (3.8-10.6) k/uL RBC 3.59 L (4.30-5.90) m/uL Hgb 11.1 L (13.0-17.5) gm/dL Hct 35.0 L (39.0-53.0) % RDW 18.2 H (11.5-15.5) % Plt Count 101 L (150-450) k/uL Neutrophils # (Manual) 25.20 H (1.3-7.7) k/uL Lymphocytes # (Manual) 0.57 L (1.0-4.8) k/uL Monocytes # (Manual) 2.30 H (0-1.0) k/uL Metamyelocytes # (Man) 0.57 H (0) k/uL Carbon Dioxide 34 H (22-30) mmol/L BUN 36 H (9-20) mg/dL Glucose 130 H (74-99) mg/dL Troponin I 1.100 H* (0.000-0.034) ng/mL Total Protein 5.8 L (6.3-8.2) g/dL Albumin 3.0 L (3.5-5.0) g/dL Thrombosis Risk Factor Assmnt - Choose All That Apply Each Risk Factor Represents 2 Points: Malignancy Each Risk Factor Represents 3 Points: Age 75 years or older Thrombosis Risk Factor Assessment Total Risk Factor Score: 5 Thrombosis Risk Factor Assessment Level: High Risk
[2022-11-05] MEDS ORDERED: ATORVASTATIN 80 MG TAB PO SCH (17:45)
[2022-11-05] MEDS: CEFEPIME 1 GM in SODIUM CHLORIDE 0.9% 50 ML IVPB SCH ×2 (18:09→23:52)
[2022-11-05] MEDS: FUROSEMIDE 10 MG/ML 4 ML VIAL IV SCH (20:06)
[2022-11-05] MEDS: SUCRALFATE 1 GM TAB PO SCH (20:06)
[2022-11-05] MEDS: METOPROLOL TARTRATE 25 MG TAB PO SCH (20:06)
[2022-11-06] MEDS: PANTOPRAZOLE 40 MG TABLET PO SCH (06:34)
[2022-11-06] MEDS: valACYclovir HCL 500 MG TAB PO SCH (08:24)
[2022-11-06] MEDS: FUROSEMIDE 10 MG/ML 4 ML VIAL IV SCH ×2 (08:24→20:17)
[2022-11-06] MEDS: SUCRALFATE 1 GM TAB PO SCH ×3 (08:24→20:17)
[2022-11-06] MEDS: CEFEPIME 1 GM in SODIUM CHLORIDE 0.9% 50 ML IVPB SCH ×3 (08:24→23:13)
[2022-11-06] MEDS: METOPROLOL TARTRATE 25 MG TAB PO SCH ×2 (08:24→20:17)
[2022-11-06] MEDS: allopurinoL 300 MG TAB PO SCH (08:24)
[2022-11-06] MEDS: ASPIRIN 81 MG PO SCH (08:24)
[2022-11-06] MEDS: CLOPIDOGREL 75 MG TAB PO SCH (08:24)
[2022-11-06] MEDS: FINASTERIDE 5 MG TAB PO SCH (08:24)
[2022-11-06 08:26] LABS: Chol/HDL Ratio 2.12 Ratio; LDL Cholesterol,Calculated 78.2 mg/dL (0.0-131.0); VLDL Calculation 15.34 mg/dL (5.00-40.00)
[2022-11-06] MEDS ORDERED: ASPIRIN 325 MG TAB PO SCH (09:00)
[2022-11-06 10:09] LABS: African American GFR (CKD) 75 (>60 ml/min/1.73 sqM); Anion Gap 0 mmol/L; Blood Urea Nitrogen 38 mg/dL (9-20); Calcium 8.2 mg/dL (8.4-10.2); Carbon Dioxide 38 mmol/L (22-30); Chloride 100 mmol/L (98-107); Glucose 118 mg/dL (74-99); Magnesium 2.4 mg/dL (1.6-2.3); Non-African American GFR(CKD) 65 (>60 ml/min/1.73 sqM); Potassium 4.4 mmol/L (3.5-5.1); Sodium 138 mmol/L (137-145)
[2022-11-06 10:10] LABS: Anisocytosis Slight; HCT 34.2 % (39.0-53.0); HGB 10.4 gm/dL (13.0-17.5); Hypochromasia Marked; MCH 30.8 pg (25.0-35.0); MCHC 30.6 g/dL (31.0-37.0); MCV 100.9 fL (80.0-100.0); Macrocytosis Moderate; Mean Platelet Volume 13.4; RBC 3.39 m/uL (4.30-5.90); RDW 18.2 % (11.5-15.5)
[2022-11-06] MEDS: SPIRONOLACTONE 25 MG TAB PO SCH (10:18)
[2022-11-06] MEDS: HEPARIN SODIUM,PORCINE/PF 5,000 UNIT/0.5 ML SYRINGE SQ SCH ×3 (10:18→23:13)
--- NOTE | 2022-11-06 10:28 | P.CRDCN ---
History of Present Illness History of present illness: HISTORY OF PRESENT ILLNESS: This is a 87-year-old male with a past medical history significant for coronary artery disease with previous CABG, B-cell lymphoma, hypertension, hyperlipidemia, COPD, and carotid stenting. Patient follows in the office with Dr. Bass. We have been asked to see the patient in consultation for elevated troponins and CHF. Patient examined at the bedside. Patient presented to the hospital with a chief complaint of shortness of breath. He denies any chest pain or pressure. Patient's family is at the bedside and states that patient becomes very short of breath and has a cough after day 3 of his chemotherapy cycle. The patient was found to be in acute congestive heart failure upon admission to the hospital. He has been started on IV Lasix 40 mg every 12 hours. * EKG reveals sinus mechanism with no signs of acute ischemia * Chest xray cardiomegaly, pulmonary vascular congestion and bilateral pleural effusions. * Laboratory data: WBC 28.7. Hemoglobin 11.1. Platelet count 101. Sodium 137. Potassium 4.3. BUN 36. Creatinine 1.13. Troponin 1.100. 0.46. 0.690. ProBNP 7830. * Current home cardiac medications include Lipitor 80 mg daily, Plavix 75 mg daily, metoprolol tartrate 25 mg twice a day, Lasix 40 mg daily * Most recent echocardiogram obtained in March 2022 revealed ejection fraction 55-60%, mild mitral and tricuspid regurgitation, moderate pulmonary hypertension, and mild aortic stenosis * Patient underwent Lexiscan stress test in December 2021 revealing evidence of prior inferior wall myocardial infarction with preserved LV function without reversible ischemia REVIEW OF SYSTEMS: At the time of my exam: CONSTITUTIONAL: Denies fever or chills. HEENT: Denies blurred vision, vision changes, or eye pain. Denies hemoptysis CARDIOVASCULAR: Denies chest pain. Denies orthopnea. Denies PND. Denies palpitations RESPIRATORY: + shortness of breath. GASTROINTESTINAL: Denies abdominal pain. Denies nausea or vomiting. HEMATOLOGIC: Denies bleeding disorders. GENITOURINARY: Denies any blood in urine. SKIN: Denies pruitis. Denies rash. PHYSICAL EXAM: VITAL SIGNS: Reviewed. GENERAL: Well-developed in no acute distress. HEENT: Head is normocephalic. Pupils are equal, round. Sclerae anicteric. Mucous membranes of the mouth are moist. Neck supple. No JVD or thyromegaly LUNGS: Respirations even and unlabored. Lungs diminished with bibasilar rales HEART: Regular rate and rhythm. S1 and S2 heard. Systolic murmur noted ABDOMEN: Soft. Nondistended. Nontender. EXTREMITIES: Normal range of motion. No clubbing or cyanosis. Peripheral pulses intact. Bilateral lower extremity edema present. NEUROLOGIC: Awake and alert. Oriented x 3. ASSESSMENT: Shortness of breath Acute on chronic heart failure with preserved ejection fraction Abnormal troponins, suspect secondary to above, no evidence of acute coronary syndrome Coronary artery disease with previous CABG 4 vessels, approximately 20 years ago, in [place] B-cell lymphoma, on chemotherapy Hypertension Hyperlipidemia COPD History of carotid stenting Valvular heart disease PLAN: An acute coronary event has been ruled out Obtain 2-D echo to assess cardiac structure and function Discontinue IV heparin. Begin subcu heparin 5000 units every 8 hours Continue IV Lasix 40 mg every 12 hours Daily weights, accurate I&O, and monitoring of kidney function Add Aldactone 12.5 mg daily Further recommendations pending patient's course Nurse practitioner note has been reviewed by physician. Signing provider agrees with the documented findings, assessment, and plan of care. Past Medical History Past Medical History: Coronary Artery Disease (CAD), COPD, Eye Disorder, Hearing Disorder / Deafness, Hypertension, Osteoarthritis (OA), Prostate Disorder, Skin Disorder Additional Past Medical History / Comment(s): GLAUCOMA, EYE PROB R/T WELDING WORK. RT CTS. ECZEMA, non-hodgkin's lymphoma History of Any Multi-Drug Resistant Organisms: None Reported Past Surgical History: Coronary Bypass/CABG, Hernia Repair, Prostate Surgery Additional Past Surgical History / Comment(s): QUAD CABG 2011, EYE SURGERIES. ING HERNIA W/ MESH. carotid stent august 2022 Past Anesthesia/Blood Transfusion Reactions: No Reported Reaction Past Psychological History: No Psychological Hx Reported Smoking Status: Former smoker Past Alcohol Use History: Daily Additional Past Alcohol Use History / Comment(s): SMOKED MANY YEARS AGO, QUIT 1966. 3-5 BEERS DAILY. Past Drug Use History: None Reported - Past Family History Father Family Medical History: Cancer Medications and Allergies Home Medications Medication Instructions Recorded Confirmed Type Finasteride [Proscar] 5 mg PO DAILY 11/26/17 11/05/22 History Clopidogrel [Plavix] 75 mg PO DAILY 04/10/22 11/05/22 History Furosemide [Lasix] 40 mg PO DAILY 04/10/22 11/05/22 History Albuterol Inhaler [Ventolin Hfa 2 puff INHALATION RT-Q6H PRN #1 04/13/22 11/05/22 Rx Inhaler] each Atorvastatin [Lipitor] 80 mg PO DIRECTED 11/05/22 11/05/22 History Cyanocobalamin (Vitamin B-12) 5,000 mcg PO DAILY 11/05/22 11/05/22 History [Vitamin B-12] Ferrous Sulfate [Feosol] 325 mg PO DAILY 11/05/22 11/05/22 History Fluticasone Nasal [place] [Flonase 1 spray EA NOSTRIL DAILY PRN 11/05/22 11/05/22 History Nasal [place]] Fluticasone/Umeclidin/Vilanter 1 puff INHALATION RT-DAILY PRN 11/05/22 11/05/22 History [Trelegy Ellipta 200-62.5-25] Folic Acid 1 mg PO DAILY 11/05/22 11/05/22 History Metoprolol Tartrate [Lopressor] 25 mg PO BID 11/05/22 11/05/22 History Omeprazole 20 mg PO BID 11/05/22 11/05/22 History Pegfilgrastim-Jmdb [Fulphila] 6 mg SQ Q21D 11/05/22 11/05/22 History Prochlorperazine [Compazine] 10 mg PO Q6H PRN 11/05/22 11/05/22 History Sucralfate [Carafate] 1 gm PO TID@0800,1400,2000 11/05/22 11/05/22 History allopurinoL [Zyloprim] 300 mg PO DAILY 11/05/22 11/05/22 History predniSONE 100 mg PO DAILY PRN 11/05/22 11/05/22 History traMADol HCL 50 mg PO Q6H PRN 11/05/22 11/05/22 History valACYclovir HCL [Valtrex] 500 mg PO DAILY 11/05/22 11/05/22 History Allergies Allergy/AdvReac Type Severity Reaction Status Date / Time No Known Allergies Allergy Verified 11/05/22 13:45 Physical Exam Vitals: Vital Signs Temp Pulse Pulse Resp BP BP Pulse Ox 11/06/22 04:00 86 18 142/75 93 L 11/06/22 00:00 93 18 123/65 93 L 11/05/22 20:00 97.9 F 89 18 110/53 94 L 11/05/22 17:10 98.5 F 87 20 122/61 99 11/05/22 16:40 81 18 133/64 99 11/05/22 16:29 81 20 126/70 99 11/05/22 15:44 98.1 F 83 16 99 11/05/22 14:36 81 18 114/67 100 11/05/22 13:08 20 11/05/22 12:38 99 F 81 20 100/59 97 Intake and Output 11/05/22 11/06/22 11/06/22 22:59 06:59 14:59 Intake Total 57.187 79.953 Balance 57.187 79.953 Intake: Intake, IV Titration 57.187 79.953 Amount Heparin Sod,Pork in 0.45% 57.187 79.953 NaCl 25,000 unit In 0.45 % NaCl 1 250ml.bag @ 12 UNITS/KG/HR 9.199 mls/hr IV .Q24H [facility] Rx#: [id number] Other: Voiding Method Urinal Urinal Weight 76 kg 76 kg Results 11/05/22 13:42 11/06/22 04:34 Cardiac Enzymes 11/05/22 11/05/22 11/05/22 Range/Units 13:42 13:42 17:32 AST 38 (17-59) U/L Troponin I 1.100 H* 0.846 H* (0.000-0.034) ng/mL 11/05/22 Range/Units 19:57 AST (17-59) U/L Troponin I 0.690 H* (0.000-0.034) ng/mL Coagulation 11/05/22 11/06/22 Range/Units 21:33 04:34 APTT 39.8 H 34.5 H (22.0-30.0) sec CBC 11/05/22 Range/Units 13:42 WBC 28.7 H (3.8-10.6) k/uL RBC 3.59 L (4.30-5.90) m/uL Hgb 11.1 L (13.0-17.5) gm/dL Hct 35.0 L (39.0-53.0) % Plt Count 101 L (150-450) k/uL Comprehensive Metabolic Panel 11/05/22 Range/Units 13:42 Sodium 137 (137-145) mmol/L Potassium 4.3 (3.5-5.1) mmol/L Chloride 101 (98-107) mmol/L Carbon Dioxide 34 H (22-30) mmol/L BUN 36 H (9-20) mg/dL Creatinine 1.13 (0.66-1.25) mg/dL Glucose 130 H (74-99) mg/dL Calcium 8.4 (8.4-10.2) mg/dL AST 38 (17-59) U/L ALT 16 (4-49) U/L Alkaline Phosphatase 94 (38-126) U/L Total Protein 5.8 L (6.3-8.2) g/dL Albumin 3.0 L (3.5-5.0) g/dL Current Medications Generic Name Dose Route Start Last Admin Trade Name Freq PRN Reason Stop Dose Admin Allopurinol 300 mg 11/06/22 09:00 Allopurinol 300 Mg Tab PO DAILY [facility] Aspirin 81 mg 11/06/22 09:00 Aspirin 81 Mg PO DAILY [facility] Clopidogrel Bisulfate 75 mg 11/06/22 09:00 Clopidogrel 75 Mg Tab PO DAILY [facility] Finasteride 5 mg 11/06/22 09:00 Finasteride 5 Mg Tab PO DAILY [facility] Furosemide 40 mg 11/05/22 21:00 11/05/22 20:06 Furosemide 10 Mg/Ml 4 Ml Vial IV 40 mg Q12HR ALEXANDRA Administration Heparin Sodium (Porcine) 0 unit 11/05/22 15:03 11/05/22 22:12 Heparin Sodium 1,000 Un/Ml (10ml Vl) IV 1,900 unit PER PROTOCOL PRN Administration Low PTT Protocol Heparin Sodium/Sodium Chloride 250 mls @ 9.199 mls/hr 11/05/22 15:15 11/06/22 05:38 25,000 unit/ Sodium Chloride IV 17 units/kg/hr .Q24H ALEXANDRA 13.032 mls/hr Titration Protocol 12 UNITS/KG/HR Cefepime HCl 1 gm/ Sodium 50 mls @ 12.5 mls/hr 11/05/22 16:45 11/05/22 23:52 Chloride IVPB 12.5 mls/hr Q8HR ALEXANDRA Administration Protocol Metoprolol Tartrate 25 mg 11/05/22 21:00 11/05/22 20:06 Metoprolol Tartrate 25 Mg Tab PO 25 mg BID [facility] Administration Nitroglycerin 0.4 mg 11/05/22 15:04 Nitroglycerin Sl Tabs 0.4 Mg Tab SUBLINGUAL Q5M PRN Chest Pain Pantoprazole Sodium 40 mg 11/06/22 07:30 11/06/22 06:34 Pantoprazole 40 Mg Tablet PO 40 mg [id number] [facility] Administration Sucralfate 1 gm 11/05/22 20:00 11/05/22 20:06 Sucralfate 1 Gm Tab PO 1 gm TID@0800,1400,2000 [facility] Administration Valacyclovir HCl 500 mg 11/06/22 09:00 Valacyclovir Hcl 500 Mg Tab PO DAILY [facility] Protocol Intake and Output 11/05/22 11/06/22 11/06/22 22:59 06:59 14:59 Intake Total 57.187 79.953 Balance 57.187 79.953 Intake: Intake, IV Titration 57.187 79.953 Amount Heparin Sod,Pork in 0.45% 57.187 79.953 NaCl 25,000 unit In 0.45 % NaCl 1 250ml.bag @ 12 UNITS/KG/HR 9.199 mls/hr IV .Q24H [facility] Rx#: [id number] Other: Voiding Method Urinal Urinal Weight 76 kg 76 kg 11/05/22 13:42 11/05/22 13:42
[2022-11-06] MEDS ORDERED: FLUTICASONE 50MCG/SPRAY NASAL 16GM EA NOSTRIL PRN (10:29)
[2022-11-06] MEDS ORDERED: NON FORMULARY DRUG (Fluticasone/Umeclidin/Vilanter [Trelegy Ellipta 200-62.5-25] 1 EACH Bl INHALATION PRN (10:29)
[2022-11-06] MEDS ORDERED: NON FORMULARY DRUG (Albuterol Inhaler 90 MCG Puff) INHALATION PRN (10:29)
--- NOTE | 2022-11-06 10:38 | P.PN ---
Subjective Progress Note Date: 11/06/22 Hospital Course: 87-year-old male with PMH of recent diagnosis of non-Hodgkin's lymphoma on chemotherapy, COPD, CAD, history of carotid stenting, CHF, hypertension, GERD, BPH presents to the ED for shortness of breath has been progressively getting worse over the past week. In the ED, his vital signs are stable. He did require upwards of 6 L nasal cannula to maintain O2 saturation in the 90s. CBC showed a CBC count 28.7 and hemoglobin of 11.1 with platelet count 101. CMP showed b icarb of 34, BUN of 36, glucose 130, albumin of 3. Troponin was 1.1. BNP was 7830. EKG showed sinus rhythm with ventricular rate of 77. Chest x-ray showed pulmonary vascular congestion and bilateral pleural effusion. Patient admitted for acute hypoxic respiratory failure in the setting of acute CHF exacerbation, non-ST elevation AL, and possible pneumonia. Currently on diuretics, IV heparin, and IV antibiotics. Subjective: Patient seen and examined at bedside. No acute events overnight. Back to his baseline 2 L oxygen. Pertinent positives and negatives as discussed above, a complete review of systems was performed and all other systems are negative. Vitals Signs Reviewed. General: nontoxic, no distress, appears at stated age Derm: warm, dry Head: atraumatic, normocephalic, symmetric, hard of hearing Eyes: EOMI, no lid lag, anicteric sclera Mouth: no lip lesion, mucus membranes moist Cardiovascular: S1S2 reg, systolic murmur Lungs: Bilateral rales , no accessory muscle use, supplemental oxygen Abdominal: soft, nontender to palpation, no guarding, no appreciable organo megaly Ext: no gross muscle atrophy, 2+ pitting edema, no contractures Neuro: CN II-XI grossly intact, no focal neuro deficits Psych: Alert, oriented, appropriate affect Data Reviewed Today: Pertinent Labs: CBC pending from this morning, will be reviewed when available, sodium 138, potassium 4.4, BUN 38, creatinine 1.02, magnesium 2.4, troponin peaked at 1.1 Imaging: EKG independently interpreted from this morning, shows normal sinus rhythm with no significant ST-T wave changes Assessment and Plan: Active: Acute on chronic hypoxic respiratory failure Diastolic CHF exacerbation Non-ST elevation AL, likely type II Possible pneumonia Leukocytosis Recent diagnosis of non-Hodgkin's lymphoma on chemotherapy -Continue supplemental oxygen, continue to wean -Continue IV Lasix of 40 mg every 12 hours, monitor renal function as well as electrolytes -Troponin elevation likely type II NSTEMI -Heparin drip discontinued -Echocardiogram pending -Cardiology consulted, continue telemetry -Aspirin, Plavix, started back on atorvastatin (has had transaminitis with chemotherapy in the past) -Also started on spironolactone by cardiology -Pro calcitonin ordered -Continue IV cefepime for now -Pneumonia less likely -Cultures pending -patient received filgrastrim recently -Oncology consulted Resolved: Chronic: COPD not in exacerbation CAD Recent carotid stenting Hypertension GERD BPH DVT ppx: Subcu heparin Code status: Full code Anticipated discharge place: Pending clinical course Anticipated discharge time: Pending clinical course Objective - Vital Signs Vital signs: Vital Signs Temp 98.0 F 11/06/22 08:22 Pulse 64 11/06/22 08:22 Resp 16 11/06/22 08:22 BP 133/75 11/06/22 08:22 Pulse Ox 90 L 11/06/22 08:22 FiO2 Intake & Output 11/05/22 11/06/22 11/06/22 18:59 06:59 18:59 Intake Total 137.140 480 Output Total 575 Balance 137.140 -95 Weight 76 kg 76 kg Intake: Intake, IV Titration 137.140 Amount Heparin Sod,Pork in 0.45% 137.140 NaCl 25,000 unit In 0.45 % NaCl 1 250ml.bag @ 12 UNITS/KG/HR 9.199 mls/hr IV .Q24H [facility] Rx#: [id number] Oral 480 Output: Urine 575 Other: Voiding Method Urinal Urinal - Labs CBC & Chem 7: 11/06/22 04:34 11/06/22 04:34 Labs: Abnormal Lab Results - Last 24 Hours (Table) 11/05/22 11/05/22 11/05/22 Range/Units 13:42 13:42 13:42 WBC 28.7 H (3.8-10.6) k/uL RBC 3.59 L (4.30-5.90) m/uL Hgb 11.1 L (13.0-17.5) gm/dL Hct 35.0 L (39.0-53.0) % MCV (80.0-100.0) fL MCHC (31.0-37.0) g/dL RDW 18.2 H (11.5-15.5) % Plt Count 101 L (150-450) k/uL Neutrophils # (Manual) 25.20 H (1.3-7.7) k/uL Lymphocytes # (Manual) 0.57 L (1.0-4.8) k/uL Monocytes # (Manual) 2.30 H (0-1.0) k/uL Metamyelocytes # (Man) 0.57 H (0) k/uL APTT (22.0-30.0) sec Carbon Dioxide 34 H (22-30) mmol/L BUN 36 H (9-20) mg/dL Glucose 130 H (74-99) mg/dL Calcium (8.4-10.2) mg/dL Magnesium (1.6-2.3) mg/dL Troponin I 1.100 H* (0.000-0.034) ng/mL Total Protein 5.8 L (6.3-8.2) g/dL Albumin 3.0 L (3.5-5.0) g/dL HDL Cholesterol (40.00-60.00) mg/dL 11/05/22 11/05/22 11/05/22 Range/Units 17:32 19:57 21:33 WBC (3.8-10.6) k/uL RBC (4.30-5.90) m/uL Hgb (13.0-17.5) gm/dL Hct (39.0-53.0) % MCV (80.0-100.0) fL MCHC (31.0-37.0) g/dL RDW (11.5-15.5) % Plt Count (150-450) k/uL Neutrophils # (Manual) (1.3-7.7) k/uL Lymphocytes # (Manual) (1.0-4.8) k/uL Monocytes # (Manual) (0-1.0) k/uL Metamyelocytes # (Man) (0) k/uL APTT 39.8 H (22.0-30.0) sec Carbon Dioxide (22-30) mmol/L BUN (9-20) mg/dL Glucose (74-99) mg/dL Calcium (8.4-10.2) mg/dL Magnesium (1.6-2.3) mg/dL Troponin I 0.846 H* 0.690 H* (0.000-0.034) ng/mL Total Protein (6.3-8.2) g/dL Albumin (3.5-5.0) g/dL HDL Cholesterol (40.00-60.00) mg/dL 11/06/22 11/06/22 11/06/22 Range/Units 04:34 04:34 04:34 WBC 23.4 H (3.8-10.6) k/uL RBC 3.39 L (4.30-5.90) m/uL Hgb 10.4 L (13.0-17.5) gm/dL Hct 34.2 L (39.0-53.0) % MCV 100.9 H (80.0-100.0) fL MCHC 30.6 L (31.0-37.0) g/dL RDW 18.2 H (11.5-15.5) % Plt Count (150-450) k/uL Neutrophils # (Manual) (1.3-7.7) k/uL Lymphocytes # (Manual) (1.0-4.8) k/uL Monocytes # (Manual) (0-1.0) k/uL Metamyelocytes # (Man) (0) k/uL APTT 34.5 H (22.0-30.0) sec Carbon Dioxide (22-30) mmol/L BUN (9-20) mg/dL Glucose (74-99) mg/dL Calcium (8.4-10.2) mg/dL Magnesium (1.6-2.3) mg/dL Troponin I (0.000-0.034) ng/mL Total Protein (6.3-8.2) g/dL Albumin (3.5-5.0) g/dL HDL Cholesterol 83.50 H (40.00-60.00) mg/dL 11/06/22 Range/Units 04:34 WBC (3.8-10.6) k/uL RBC (4.30-5.90) m/uL Hgb (13.0-17.5) gm/dL Hct (39.0-53.0) % MCV (80.0-100.0) fL MCHC (31.0-37.0) g/dL RDW (11.5-15.5) % Plt Count (150-450) k/uL Neutrophils # (Manual) (1.3-7.7) k/uL Lymphocytes # (Manual) (1.0-4.8) k/uL Monocytes # (Manual) (0-1.0) k/uL Metamyelocytes # (Man) (0) k/uL APTT (22.0-30.0) sec Carbon Dioxide 38 H (22-30) mmol/L BUN 38 H (9-20) mg/dL Glucose 118 H (74-99) mg/dL Calcium 8.2 L (8.4-10.2) mg/dL Magnesium 2.4 H (1.6-2.3) mg/dL Troponin I (0.000-0.034) ng/mL Total Protein (6.3-8.2) g/dL Albumin (3.5-5.0) g/dL HDL Cholesterol (40.00-60.00) mg/dL
--- NOTE | 2022-11-06 10:41 | CA ---
Transthoracic Echo Report Name: Rowdy Talamantes Age: 87 Gender: M : 1935 Exam Date: 11/06/2022 07:33 Exam Location: [facility] Ht (in): 66.5 Wt (lb): 169 Ordering Physician: Michelle Gomez MD Attending/Referring Phys: Rerecording Mixer Krissy Bingham RDCS Procedure CPT: Indications: chf Cardiac Hx: Technical Quality: Contrast 1: Total Dose (mL): Contrast 2: Total Dose (mL): MEASUREMENTS (Male / Female) Normal Values 2D ECHO LV Diastolic Diameter PLAX 4.1 cm 4.2 - 5.9 / 3.9 - 5.3 cm LV Systolic Diameter PLAX 3.5 cm IVS Diastolic Thickness 1.4 cm 0.6 - 1.0 / 0.6 - 0.9 cm LVPW Diastolic Thickness 1.3 cm 0.6 - 1.0 / 0.6 - 0.9 cm LV Relative Wall Thickness 0.7 RV Internal Dim ED PLAX 3.2 cm LVOT Diameter 2.6 cm LA Systolic Diameter LX 4.7 cm 3.0 - 4.0 / 2.7 - 3.8 cm M-MODE Aortic Root Diameter MM 3.6 cm MV E Point Septal Separation 1.0 cm DOPPLER AV Peak Velocity 246.8 cm/s AV Peak Gradient 24.4 mmHg AV Mean Velocity 152.6 cm/s AV Mean Gradient 11.5 mmHg AV Velocity Time Integral 47.0 cm LVOT Peak Velocity 75.4 cm/s LVOT Peak Gradient 2.3 mmHg AV Area Cont Eq pk 1.7 cm??? MV Area PHT 3.5 cm??? MV Deceleration Time 184.2 ms TR Peak Velocity 329.4 cm/s TR Peak Gradient 43.4 mmHg Right Ventricular Systolic Press 48.4 mmHg FINDINGS Left Ventricle Left ventricular ejection fraction is estimated at 50-55 %. Left ventricular cavity size normal.Moderately increased left ventricular wall thickness. Right Ventricle Normal right ventricular size. Moderate pulmonary hypertension. Right Atrium Normal right atrial size. Left Atrium Mildly increased left atrial diameter. Mildly increased left atrial area. Mitral Valve Mild thickening/calcification of the anterior mitral valve leaflet. Moderate mitral annular calcification. Mild mitral regurgitation. Aortic Valve Aortic valve sclerosis. Mild aortic stenosis with a peak gradient of 24 mmHg and a mean gradient of 12 mmHg. Tricuspid Valve Structurally normal tricuspid valve. Mild to Moderate tricuspid regurgitation. Pulmonic Valve Trace pulmonic regurgitation.pulmonic valve not well visualized. Pericardium Normal pericardium. No pericardial effusion. Aorta Normal size aortic root and proximal ascending aorta. CONCLUSIONS Technically difficult study. 1. Normal left ventricle size was borderline normal left ventricular systolic function and evidence of LVH 2. Mild mitral with [id number] tricuspid regurgitation and moderate pulmonary hypertension 3. Mild aortic stenosis Previewed by: Dr. Kt Herndon MD (Electronically Signed) Final Date: 06 November 2022 10:40
[2022-11-06 11:34] LABS: Platelet Count 61 k/uL (150-450)
[2022-11-06 11:40] LABS: Band Neutrophils % 10 %; Lymphocytes # (M) 0.23 k/uL (1.0-4.8); Metamyelocytes # (M) 0.93 k/uL (0); Metamyelocytes % 4 %; Monocytes # (M) 1.16 k/uL (0-1.0); Myelocytes # (M) 1.16 k/uL (0); Myelocytes % 5 %; Neutrophils % (M) 77 %; Nucleated Red Blood Cells 1 /100 WBC (0-0); Total Cells Counted 200; WBC 23.2 k/uL (3.8-10.6)
[2022-11-06 11:52] LABS: Poikilocytosis (M) Present
[2022-11-06] MEDS ORDERED: VANCOMYCIN 1,500 MG in SODIUM CHLORIDE 0.9% 500 ML 500 ML IVPB SCH (12:00)
--- NOTE | 2022-11-06 16:30 | P.CONS ---
History of Present Illness - Reason for Consult Consult date: 11/06/22 NHL, on treatment Requesting physician: Michelle Gomez - Chief Complaint SOB - History of Present Illness Mister Talamantes is a pleasant 87-year-old male patient of Dr. Barbosa With multiple medical problems including PMH of hypertension, hyperlipidemia, congestive heart failure, pleural effusion, GERD, COPD, superficial bladder cancer treated with surgery and intravesicular treatment, Seen initially in 2019 because of low platelet count on pre-op CBC. On workup, this was artifactual due to in vitro clumping, nothing further was needed. Patient was referred back as a new consult 10/05. June 2022 after a fall and subsequent hematemesis he was seen in [facility] ER. He had black stools for about 2 weeks prior. He was transferred to [facility]. EGD 07/13/22 2 cm polyploid, ulcerated mass in the anterior wall of the gastric body. 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 CT CAP 07/15/22 showed irregular mass versus consolidation in the right lower lobe, multiple loculated fluid collections in the bilateral lung fissures, diffuse pleural thickening at the base, enlarged bilateral hilar nodes, prominent and borderline enlarged mediastinal nodes, necrotic-appearing lymph node in the right lower neck and thickening of the ball of the gastric body. PET scan 07/23/22 showed uptake in the right lower neck node and in the primary site, low level nonspecific uptake seen in the right lower lung consolidation, some peripheral uptake in the spleen. Patient was started on mini R-CHOP. He required some dose delays and some transfusions, 15% dose reduction because of elevated LFTs. PET scan after cycle 3 showed a good response. Patient transferred care locally because he is now living in [place]. He had cycle 5 at this practice 11/02/22. He received G-CSF 11/03/22. He stated that he started having progressive shortness of breath since his treatment on the , more difficulty talking, he had to increase his O2 to 6L, some mild chest discomfort, decreased energy levels and a little bit worsening weakness, Did have some coughing episodes. He denied any fevers, nausea, vomiting, he feels he is eating fairly well, no abdominal pain or cramping, acute changes in bowel or bladder habits, he states chronic lower extremity swelling bilaterally but worse recently. He reports he has felt this before when he has had a CHF exacerbation. He was admitted, WBC of 20.7, ANC 25.2, hemoglobin 11.1, platelets 101,000. Chest x-ray reads no evidence of pleural effusion, focal consolidation or pneumothorax, pulmonary vascularity is congested, impression reads cardiomegaly, pulmonary vascular congestion and bilateral pleural effusions. BMP 7830, troponins initially 1.1, have serially decreased, cholesterol normal, high HDL. Echo showing LVEF 50-55%, moderate pulmonary hypertension. When seen today patient reports that his breathing is improved si nce admit, he is urinating a lot from the Lasix Review of Systems 10 point review of systems is negative except as stated in HPI Past Medical History Past Medical History: Coronary Artery Disease (CAD), COPD, Eye Disorder, Hearing Disorder / Deafness, Hypertension, Osteoarthritis (OA), Prostate Disorder, Skin Disorder Additional Past Medical History / Comment(s): GLAUCOMA, EYE PROB R/T WELDING WORK. RT CTS. ECZEMA, non-hodgkin's lymphoma History of Any Multi-Drug Resistant Organisms: None Reported Past Surgical History: Coronary Bypass/CABG, Hernia Repair, Prostate Surgery Additional Past Surgical History / Comment(s): QUAD CABG 2011, EYE SURGERIES. ING HERNIA W/ MESH. carotid stent august 2022 Past Anesthesia/Blood Transfusion Reactions: No Reported Reaction Past Psychological History: No Psychological Hx Reported Smoking Status: Former smoker Past Alcohol Use History: Daily Additional Past Alcohol Use History / Comment(s): SMOKED MANY YEARS AGO, QUIT 1966. 3-5 BEERS DAILY. Past Drug Use History: None Reported - Past Family History Father Family Medical History: Cancer Medications and Allergies Home Medications Medication Instructions Recorded Confirmed Type Finasteride [Proscar] 5 mg PO DAILY 11/26/17 11/05/22 History Clopidogrel [Plavix] 75 mg PO DAILY 04/10/22 11/05/22 History Furosemide [Lasix] 40 mg PO DAILY 04/10/22 11/05/22 History Albuterol Inhaler [Ventolin Hfa 2 puff INHALATION RT-Q6H PRN #1 04/13/22 3 Rx Inhaler] each Atorvastatin [Lipitor] 80 mg PO DIRECTED 11/05/22 11/05/22 History Cyanocobalamin (Vitamin B-12) 5,000 mcg PO DAILY 11/05/22 11/05/22 History [Vitamin B-12] Ferrous Sulfate [Feosol] 325 mg PO DAILY 11/05/22 11/05/22 History Fluticasone Nasal [place] [Flonase 1 spray EA NOSTRIL DAILY PRN 11/05/22 11/05/22 History Nasal [place]] Fluticasone/Umeclidin/Vilanter 1 puff INHALATION RT-DAILY PRN 11/05/22 11/05/22 History [Trelegy Ellipta 200-62.5-25] Folic Acid 1 mg PO DAILY 11/05/22 11/05/22 History Metoprolol Tartrate [Lopressor] 25 mg PO BID 11/05/22 11/05/22 History Omeprazole 20 mg PO BID 11/05/22 11/05/22 History Pegfilgrastim-Jmdb [Fulphila] 6 mg SQ Q21D 11/05/22 11/05/22 History Prochlorperazine [Compazine] 10 mg PO Q6H PRN 11/05/22 11/05/22 History Sucralfate [Carafate] 1 gm PO TID@0800,1400,2000 11/05/22 11/05/22 History allopurinoL [Zyloprim] 300 mg PO DAILY 11/05/22 11/05/22 History predniSONE 100 mg PO DAILY PRN 11/05/22 11/05/22 History traMADol HCL 50 mg PO Q6H PRN 11/05/22 11/05/22 History valACYclovir HCL [Valtrex] 500 mg PO DAILY 11/05/22 11/05/22 History Allergies Allergy/AdvReac Type Severity Reaction Status Date / Time No Known Allergies Allergy Verified 11/05/22 13:45 Physical Exam Vitals: Vital Signs Temp Pulse Pulse Resp BP BP Pulse Ox 11/06/22 08:22 98.0 F 64 16 133/75 90 L 11/06/22 04:00 86 18 142/75 93 L 11/06/22 00:00 93 18 123/65 93 L 11/05/22 20:00 97.9 F 89 18 110/53 94 L 11/05/22 17:10 98.5 F 87 20 122/61 99 11/05/22 16:40 81 18 133/64 99 11/05/22 16:29 81 20 126/70 99 11/05/22 15:44 98.1 F 83 16 99 11/05/22 14:36 81 18 114/67 100 11/05/22 13:08 20 11/05/22 12:38 99 F 81 20 100/59 97 Intake and Output 11/05/22 11/06/22 11/06/22 22:59 06:59 14:59 Intake Total 57.187 79.953 240 Balance 57.187 79.953 240 Intake: Intake, IV Titration 57.187 79.953 Amount Heparin Sod,Pork in 0.45% 57.187 79.953 NaCl 25,000 unit In 0.45 % NaCl 1 250ml.bag @ 12 UNITS/KG/HR 9.199 mls/hr IV .Q24H [facility] Rx#: [id number] Oral 240 Other: Voiding Method Urinal Urinal Urinal Weight 76 kg 76 kg - Constitutional General appearance: average body habitus, cooperative, no acute distress - EENT Eyes: anicteric sclerae, EOMI ENT: hearing grossly normal, normal oropharynx - Neck Neck: no lymphadenopathy - Respiratory Respiratory: bilateral: rales (bases) - Cardiovascular Heart sounds: normal: S1, S2 Abnormal Heart Sounds: no systolic murmur, no diastolic murmur, no rub, no S3 Gallop, no S4 Gallop, no click, no other leg Peripheral Edema: bilateral: 2+ (Mid calf distal), Pitting - Gastrointestinal General gastrointestinal: no absent bowel sounds, no decreased bowel sounds, no distended, no hepatomegaly, no hyperactive bowel sounds, normal bowel sounds, no organomegaly, no rigid, no scaphoid, soft, no splenomegaly, no tenderness, no umbilical hernia, no ventral hernia - Integumentary Integumentary: normal - Neurologic Neurologic: CNII-XII intact - Musculoskeletal Musculoskeletal: strength equal bilaterally - Psychiatric Psychiatric: A&O x's 3, appropriate affect, intact judgment & insight Results CBC & Chem 7: 11/06/22 04:34 11/06/22 04:34 Labs: Abnormal Lab Results - Last 24 Hours (Table) 11/05/22 11/05/22 11/05/22 Range/Units 13:42 13:42 13:42 WBC 28.7 H (3.8-10.6) k/uL RBC 3.59 L (4.30-5.90) m/uL Hgb 11.1 L (13.0-17.5) gm/dL Hct 35.0 L (39.0-53.0) % RDW 18.2 H (11.5-15.5) % Plt Count 101 L (150-450) k/uL Neutrophils # (Manual) 25.20 H (1.3-7.7) k/uL Lymphocytes # (Manual) 0.57 L (1.0-4.8) k/uL Monocytes # (Manual) 2.30 H (0-1.0) k/uL Metamyelocytes # (Man) 0.57 H (0) k/uL APTT (22.0-30.0) sec Carbon Dioxide 34 H (22-30) mmol/L BUN 36 H (9-20) mg/dL Glucose 130 H (74-99) mg/dL Troponin I 1.100 H* (0.000-0.034) ng/mL Total Protein 5.8 L (6.3-8.2) g/dL Albumin 3.0 L (3.5-5.0) g/dL HDL Cholesterol (40.00-60.00) mg/dL 11/05/22 11/05/22 11/05/22 Range/Units 17:32 19:57 21:33 WBC (3.8-10.6) k/uL RBC (4.30-5.90) m/uL Hgb (13.0-17.5) gm/dL Hct (39.0-53.0) % RDW (11.5-15.5) % Plt Count (150-450) k/uL Neutrophils # (Manual) (1.3-7.7) k/uL Lymphocytes # (Manual) (1.0-4.8) k/uL Monocytes # (Manual) (0-1.0) k/uL Metamyelocytes # (Man) (0) k/uL APTT 39.8 H (22.0-30.0) sec Carbon Dioxide (22-30) mmol/L BUN (9-20) mg/dL Glucose (74-99) mg/dL Troponin I 0.846 H* 0.690 H* (0.000-0.034) ng/mL Total Protein (6.3-8.2) g/dL Albumin (3.5-5.0) g/dL HDL Cholesterol (40.00-60.00) mg/dL 11/06/22 11/06/22 Range/Units 04:34 04:34 WBC (3.8-10.6) k/uL RBC (4.30-5.90) m/uL Hgb (13.0-17.5) gm/dL Hct (39.0-53.0) % RDW (11.5-15.5) % Plt Count (150-450) k/uL Neutrophils # (Manual) (1.3-7.7) k/uL Lymphocytes # (Manual) (1.0-4.8) k/uL Monocytes # (Manual) (0-1.0) k/uL Metamyelocytes # (Man) (0) k/uL APTT 34.5 H (22.0-30.0) sec Carbon Dioxide (22-30) mmol/L BUN (9-20) mg/dL Glucose (74-99) mg/dL Troponin I (0.000-0.034) ng/mL Total Protein (6.3-8.2) g/dL Albumin (3.5-5.0) g/dL HDL Cholesterol 83.50 H (40.00-60.00) mg/dL Chest x-ray: report reviewed Assessment and Plan (1) Acute on chronic heart failure Current Visit: Yes Status: Acute Priority: High Code(s): I50.9 - HEART FAILURE, UNSPECIFIED SNOMED Code(s): 869264535 (2) NSTEMI (non-ST elevated myocardial infarction) Current Visit: Yes Status: Acute Priority: High Code(s): I21.4 - NON-ST ELEVATION (NSTEMI) MYOCARDIAL INFARCTION SNOMED Code(s): 18583545 (3) NHL (non-Hodgkin's lymphoma) Current Visit: Yes Status: Acute Code(s): C85.90 - NON-HODGKIN LYMPHOMA, UNSPECIFIED, UNSPECIFIED SITE SNOMED Code(s): 706420957 Plan: Acute on chronic CHF, elevated troponins -Patient has been seen by Cardiology. He has received Lasix, he is on a heparin drip. He is feeling better today. Defer management of the same to Cardiology -Echo report reviewed. LVEF 55-60% was 04/05, currently LVEF 50-55%. Slight change from baseline. Not significant enough that treatment would have to be adjusted for final cycle Non-Hodgkin's lymphoma -Patient is status post 5/6 cycles of mini R CHOP -Patient Hematologically has done well. -Elevated WBC and ANC multifactorial. Patient did receive G-CSF on the so, that is going to contribute to the high level. Also, CHF exacerbation and elevated troponins are likely causing some increase as well. No fevers. Pending pancultures -With each cycle patient has noted a progressive increase in intensity and duration of weakness and symptoms, also taking him longer to recover. He will follow-up with Dr. Barbosa prior to his last treatment. attests: I have seen and examined patient, performed H&P, developed impression and plan of care. Discussed with dictator. Agree with documentation, dictated as a scribe.
[2022-11-06] MEDS: IPRATROPIUM-ALBUTEROL 3 ML NEB INHALATION PRN (20:46)
[2022-11-06] MEDS: SYMBICORT 160-4.5 MCG INHALER INHALATION SCH (20:48)
[2022-11-07] MEDS: PANTOPRAZOLE 40 MG TABLET PO SCH (06:07)
[2022-11-07 07:16] LABS: Anisocytosis Slight; HCT 32.8 % (39.0-53.0); HGB 10.2 gm/dL (13.0-17.5); Hypochromasia Marked; MCH 30.8 pg (25.0-35.0); MCHC 31.2 g/dL (31.0-37.0); MCV 98.9 fL (80.0-100.0); Macrocytosis Slight; RBC 3.32 m/uL (4.30-5.90)
[2022-11-07 07:29] LABS: African American GFR (CKD) 79 (>60 ml/min/1.73 sqM); Anion Gap 3 mmol/L; Blood Urea Nitrogen 35 mg/dL (9-20); Calcium 8.1 mg/dL (8.4-10.2); Carbon Dioxide 36 mmol/L (22-30); Chloride 98 mmol/L (98-107); Glucose 103 mg/dL (74-99); Non-African American GFR(CKD) 69 (>60 ml/min/1.73 sqM); Potassium 4.1 mmol/L (3.5-5.1); Sodium 137 mmol/L (137-145)
[2022-11-07 08:03] LABS: Platelet Count 51 k/uL (150-450)
[2022-11-07] MEDS: SYMBICORT 160-4.5 MCG INHALER INHALATION SCH (08:12)
[2022-11-07] MEDS: IPRATROPIUM 0.5 MG/2.5 ML NEBU INHALATION SCH ×2 (08:12→11:36)
[2022-11-07] MEDS: IPRATROPIUM-ALBUTEROL 3 ML NEB INHALATION PRN (08:12)
[2022-11-07] MEDS ORDERED: FERROUS SULFATE 325 MG TAB PO SCH (09:00)
[2022-11-07] MEDS ORDERED: ATORVASTATIN 20 MG TAB PO SCH (09:00)
[2022-11-07] MEDS ORDERED: CYANOCOBALAMIN 500 MCG TAB PO SCH (09:00)
[2022-11-07] MEDS ORDERED: FOLIC ACID 1 MG TAB PO SCH (09:00)
[2022-11-07] MEDS: FUROSEMIDE 10 MG/ML 4 ML VIAL IV SCH (09:06)
[2022-11-07] MEDS: SUCRALFATE 1 GM TAB PO SCH (09:06)
[2022-11-07] MEDS: valACYclovir HCL 500 MG TAB PO SCH (09:06)
[2022-11-07] MEDS: CEFEPIME 1 GM in SODIUM CHLORIDE 0.9% 50 ML IVPB SCH (09:06)
[2022-11-07] MEDS: ASPIRIN 81 MG PO SCH (09:07)
[2022-11-07] MEDS: METOPROLOL TARTRATE 25 MG TAB PO SCH (09:07)
[2022-11-07] MEDS: CLOPIDOGREL 75 MG TAB PO SCH (09:07)
[2022-11-07] MEDS: allopurinoL 300 MG TAB PO SCH (09:07)
[2022-11-07] MEDS: FINASTERIDE 5 MG TAB PO SCH (09:07)
[2022-11-07] MEDS: SPIRONOLACTONE 25 MG TAB PO SCH (09:08)
[2022-11-07] MEDS: HEPARIN SODIUM,PORCINE/PF 5,000 UNIT/0.5 ML SYRINGE SQ SCH (09:12)
[2022-11-07 09:40] LABS: Band Neutrophils % 2 %; Eosinophils # (M) 0.28 k/uL (0-0.7); Lymphocytes # (M) 0.57 k/uL (1.0-4.8); Metamyelocytes # (M) 0.14 k/uL (0); Metamyelocytes % 2 %; Monocytes # (M) 0.28 k/uL (0-1.0); Myelocytes # (M) 0.14 k/uL (0); Myelocytes % 2 %; Neutrophils % (M) 79 %; Nucleated Red Blood Cells 1 /100 WBC (0-0); Total Cells Counted 200; WBC 7.1 k/uL (3.8-10.6)
[2022-11-07 09:45] LABS: Poikilocytosis (M) Present
[2022-11-07 10:40] VITALS: BP 140/67; PULSE 97; RESP 18; TEMP 97.4
--- NOTE | 2022-11-07 11:40 | P.DS ---
Providers Date of admission: 11/05/22 15:04 Expected date of discharge: 11/07/22 Attending physician: Juanita Pizano DO Consults: 11/05/22 15:04 Consult Physician Urgent Consulting Provider: Krishan Bass Consult Reason/Comments: nstemi Do you want consulting provider notified?: Yes 11/05/22 16:52 Consult Physician Urgent Consulting Provider: Zach Barbosa Consult Reason/Comments: known to patient Do you want consulting provider notified?: Yes Primary care physician: Mitchel Churchill [place] Hospital Course: Discharge Diagnosis: Acute on chronic hypoxic respiratory failure Diastolic CHF exacerbation Non-ST elevation NH, likely type II Leukocytosis Recent diagnosis of non-Hodgkin's lymphoma on chemotherapy Hospital Course: 87-year-old male with PMH of recent diagnosis of non-Hodgkin's lymphoma on chemotherapy, COPD, CAD, history of carotid stenting, CHF, hypertension, GERD, BPH presents to the ED for shortness of breath has been progressively getting worse over the past week. In the ED, his vital signs are stable. He did require upwards of 6 L nasal cannula to maintain O2 saturation in the 90s. CBC showed a CBC count 28.7 and hemoglobin of 11.1 with platelet count 101. CMP showed bicarb of 34, BUN of 36, glucose 130, albumin of 3. Troponin was 1.1. BNP was 7830. EKG showed sinus rhythm with ventricular rate of 77. Chest x-ray showed pulmonary vascular congestion and bilateral pleural effusion. Patient admitted for acute hypoxic respiratory failure in the setting of acute CHF exacerbation, non-ST elevation NH, and possible pneumonia. Was started on IV heparin and IV diuretics. Cardiology consulted. Echocardiogram showed normal LV size and systolic function, mild to moderate tricuspid regurgitation and moderate pulmonary hypertension. Being discharged on oral diuretics. Oncology also consulted. Outpatient follow-up. Pneumonia unlikely given clinical improvement with IV diuretics. Patient seen and examined at bedside. Vital signs reviewed and stable. General: nontoxic, no distress, appears at stated age Derm: warm, dry Head: atraumatic, normocephalic, symmetric, hard of hearing Eyes: EOMI, no lid lag, anicteric sclera Mouth: no lip lesion, mucus membranes moist Cardiovascular: S1S2 reg, systolic murmur Lungs: Bilateral rales , no accessory muscle use, supplemental oxygen Abdominal: soft, nontender to palpation, no guarding, no appreciable organomegaly Ext: no gross muscle atrophy, 2+ pitting edema, no contractures Neuro: CN II-XI grossly intact, no focal neuro deficits Psych: Alert, oriented, appropriate affect A total of 36 minutes of time were spent preparing this complex discharge summary. Patient was discharged on 11/07/22 at 1124. Patient Condition at Discharge: Stable Plan - Discharge Summary Discharge Rx Participant: No New Discharge Prescriptions: New Spironolactone [Aldactone] 12.5 mg PO DAILY #30 tab Aspirin 81 mg PO DAILY #30 tab Furosemide [Lasix] 40 mg PO BID@0900,1600 #60 tab Atorvastatin [Lipitor] 20 mg PO DAILY #30 tab Continue Finasteride [Proscar] 5 mg PO DAILY Albuterol Inhaler [Ventolin Hfa Inhaler] 2 puff INHALATION RT-Q6H PRN #1 each PRN Reason: Shortness Of Breath Cyanocobalamin (Vitamin B-12) [Vitamin B-12] 5,000 mcg PO DAILY Sucralfate [Carafate] 1 gm PO TID@0800,1400,1999 Omeprazole 20 mg PO BID Fluticasone/Umeclidin/Vilanter [Trelegy Ellipta 200-62.5-25] 1 puff INHALATION RT-DAILY PRN PRN Reason: Shortness Of Breath Fluticasone Nasal [place] [Flonase Nasal [place]] 1 spray EA NOSTRIL DAILY PRN PRN Reason: Allergy Symptoms predniSONE 100 mg PO DAILY PRN PRN Reason: DAY OF AND 4DAYS AFTER CHEMO Ferrous Sulfate [Iron (65 MG Elemental)] 325 mg PO DAILY Folic Acid 1 mg PO DAILY Clopidogrel [Plavix] 75 mg PO DAILY traMADol HCL 50 mg PO Q6H PRN PRN Reason: Pain Prochlorperazine [Compazine] 10 mg PO Q6H PRN PRN Reason: Nausea valACYclovir HCL [Valtrex] 500 mg PO DAILY allopurinoL [Zyloprim] 300 mg PO DAILY Metoprolol Tartrate [Lopressor] 25 mg PO BID Pegfilgrastim-Jmdb [Fulphila] 6 mg SQ Q21D Discontinued Atorvastatin [Lipitor] 80 mg PO DIRECTED Furosemide [Lasix] 40 mg PO DAILY Discharge Medication List Finasteride [Proscar] 5 mg PO DAILY 11/26/17 [History] Clopidogrel [Plavix] 75 mg PO DAILY 04/10/22 [History] Albuterol Inhaler [Ventolin Hfa Inhaler] 2 puff INHALATION RT-Q6H PRN #1 each 04/13/22 [Rx] Cyanocobalamin (Vitamin B-12) [Vitamin B-12] 5,000 mcg PO DAILY 11/05/22 [History] Ferrous Sulfate [Iron (65 MG Elemental)] 325 mg PO DAILY 11/05/22 [History] Fluticasone Nasal [place] [Flonase Nasal [place]] 1 spray EA NOSTRIL DAILY PRN 11/05/22 [History] Fluticasone/Umeclidin/Vilanter [Trelegy Ellipta 200-62.5-25] 1 puff INHALATION RT-DAILY PRN 11/05/22 [History] Folic Acid 1 mg PO DAILY 11/05/22 [History] Metoprolol Tartrate [Lopressor] 25 mg PO BID 11/05/22 [History] Omeprazole 20 mg PO BID 11/05/22 [History] Pegfilgrastim-Jmdb [Fulphila] 6 mg SQ Q21D 11/05/22 [History] Prochlorperazine [Compazine] 10 mg PO Q6H PRN 11/05/22 [History] Sucralfate [Carafate] 1 gm PO TID@0800,1400,2000 11/05/22 [History] allopurinoL [Zyloprim] 300 mg PO DAILY 11/05/22 [History] predniSONE 100 mg PO DAILY PRN 11/05/22 [History] traMADol HCL 50 mg PO Q6H PRN 11/05/22 [History] valACYclovir HCL [Valtrex] 500 mg PO DAILY 11/05/22 [History] Aspirin 81 mg PO DAILY #30 tab 11/07/22 [Rx] Atorvastatin [Lipitor] 20 mg PO DAILY #30 tab 11/07/22 [Rx] Furosemide [Lasix] 40 mg PO BID@0900,1600 #60 tab 11/07/22 [Rx] Spironolactone [Aldactone] 12.5 mg PO DAILY #30 tab 11/07/22 [Rx] Follow up Appointment(s)/Referral(s): Zach Barbosa [STAFF PHYSICIAN] - 11/22/22 9:00 am (This is a chemo appt) Seema Donaldson MD [STAFF PHYSICIAN] - 11/19/22 8:45 am Mitchel Bergeron MD [Primary Care Provider] - 11/26/22 9:30 am Patient Instructions/Handouts: Heart Failure (DC) Activity/Diet/Wound Care/Special Instructions: Please see your PCP, charge coordinator and oncologist. Discharge Disposition: HOME SELF-CARE
--- NOTE | 2022-11-07 12:06 | P.PN ---
Subjective HISTORY OF PRESENT ILLNESS: This is a 87-year-old male with a past medical history significant for coronary artery disease with previous CABG, B-cell lymphoma, hypertension, hyperlipidemia, COPD, and carotid stenting. Patient follows in the office with Dr. Bass. We have been asked to see the patient in consultation for elevated troponins and CHF. Patient examined at the bedside. Patient presented to the hospital with a chief complaint of shortness of breath. He denies any chest pain or pressure. Patient's family is at the bedside and states that patient becomes very short of breath and has a cough after day 3 of his chemotherapy cycle. The patient was found to be in acute congestive heart failure upon admission to the hospital. He has been started on IV Lasix 40 mg every 12 hours. * EKG reveals sinus mechanism with no signs of acute ischemia * Chest xray cardiomegaly, pulmonary vascular congestion and bilateral pleural effusions. * Laboratory data: WBC 28.7. Hemoglobin 11.1. Platelet count 101. Sodium 137. Potassium 4.3. BUN 36. Creatinine 1.13. Troponin 1.100. 0.46. 0.690. ProBNP 7830. * Current home cardiac medications include Lipitor 80 mg daily, Plavix 75 mg daily, metoprolol tartrate 25 mg twice a day, Lasix 40 mg daily * Most recent echocardiogram obtained in March 2022 revealed ejection fraction 55-60%, mild mitral and tricuspid regurgitation, moderate pulmonary hypertension, and mild aortic stenosis * Patient underwent Lexiscan stress test in December 2021 revealing evidence of prior inferior wall myocardial infarction with preserved LV function without reversible ischemia 11/07/2022 Patient examined this morning at the bedside. Patient denies chest pain or pressure. He denies SOB. He remains on IV lasix. Echocardiogram obtained revealing ejection fraction 50-55%, moderate pulmonary hypertension, mild MR, mild , [id number] tricuspid regurgitation PHYSICAL EXAM: VITAL SIGNS: Reviewed. GENERAL: Well-developed in no acute distress. HEENT: Head is normocephalic. Pupils are equal, round. Sclerae anicteric. Mucous membranes of the mouth are moist. Neck supple. No JVD or thyromegaly LUNGS: Respirations even and unlabored. Lungs diminished HEART: Regular rate and rhythm. S1 and S2 heard. Systolic murmur noted ABDOMEN: Soft. Nondistended. Nontender. EXTREMITIES: Normal range of motion. No clubbing or cyanosis. Peripheral pulses intact. No lower extremity edema present. NEUROLOGIC: Awake and alert. Oriented x 3. ASSESSMENT: Shortness of breath Acute on chronic heart failure with preserved ejection fraction Abnormal troponins, suspect secondary to above, no evidence of acute coronary syndrome Coronary artery disease with previous CABG 4 vessels, approximately 20 years ago, in [place] B-cell lymphoma, on chemotherapy Hypertension Hyperlipidemia COPD History of carotid stenting Valvular heart disease PLAN: Discontinue IV Lasix Begin oral Lasix 40 mg twice a day Continue additional cardiac medications Patient is stable for discharge today from a cardiac standpoint Nurse practitioner note has been reviewed by physician. Signing provider agrees with the documented findings, assessment, and plan of care. Objective - Vital Signs Vital signs: Vital Signs Temp 97.4 F L 11/07/22 08:26 Pulse 97 11/07/22 08:26 Resp 18 11/07/22 08:26 BP 140/67 11/07/22 08:26 Pulse Ox 97 11/07/22 08:26 FiO2 Intake & Output 11/06/22 11/07/22 11/07/22 18:59 06:59 18:59 Intake Total 720 240 Output Total 575 Balance 145 240 Weight 76 kg 76 kg Intake: Oral 720 240 Output: Urine 575 Other: Voiding Method Urinal Urinal Urinal - Labs CBC & Chem 7: 11/07/22 06:28 11/07/22 06:28 Labs: Abnormal Lab Results - Last 24 Hours (Table) 11/06/22 11/07/22 11/07/22 Range/Units 04:34 06:28 06:28 RBC 3.32 L (4.30-5.90) m/uL Hgb 10.2 L (13.0-17.5) gm/dL Hct 32.8 L (39.0-53.0) % RDW 18.0 H (11.5-15.5) % Plt Count 51 L (150-450) k/uL Lymphocytes # (Manual) 0.57 L (1.0-4.8) k/uL Metamyelocytes # (Man) 0.14 H (0) k/uL Myelocytes # (Manual) 0.14 H (0) k/uL Nucleated RBCs 1 H (0-0) /100 WBC Carbon Dioxide 36 H (22-30) mmol/L BUN 35 H (9-20) mg/dL Glucose 103 H (74-99) mg/dL Calcium 8.1 L (8.4-10.2) mg/dL Procalcitonin 0.17 H (0.02-0.09) ng/mL Microbiology - Last 24 Hours (Table) 11/05/22 15:25 Blood Culture - Preliminary Blood
--- NOTE | 2022-11-07 13:07 | P.PN ---
Subjective Progress Note Date: 11/07/22 Principal diagnosis: CHF exacerbation, NSTEMI. On treatment for non-Hodgkin's lymphoma In follow-up today patient is reporting feeling much better than when he came in, he is back to 2 L oxygen which is his baseline, he has ambulated to the bathroom with no breathing difficulties. He denies any chest pain. No dizziness or palpitations with changing positions. Mild pedal edema, he has compression socks on Objective - Vital Signs Vital signs: Vital Signs Temp 97.4 F L 11/07/22 08:26 Pulse 97 11/07/22 08:26 Resp 18 11/07/22 08:26 BP 140/67 11/07/22 08:26 Pulse Ox 97 11/07/22 08:26 FiO2 Intake & Output 11/06/22 11/07/22 11/07/22 18:59 06:59 18:59 Intake Total 720 250 Output Total 575 Balance 145 250 Weight 76 kg 76 kg Intake: IV 10 Invasive Line 2 10 Oral 720 240 Output: Urine 575 Other: Voiding Method Urinal Urinal Urinal - Constitutional General appearance: Present: average body habitus, cooperative, no acute distress - EENT Eyes: Present: anicteric sclerae, EOMI ENT: Present: hearing grossly normal - Respiratory Respiratory: right: rales (few scattered in the base), bilateral: CTA - Cardiovascular Rhythm: regular Heart sounds: normal: S1, S2 Abnormal Heart Sounds: Present: systolic murmur - Peripheral edema foot Peripheral Edema: bilateral: None - Gastrointestinal General gastrointestinal: Present: normal bowel sounds, soft - Integumentary Integumentary: Present: normal - Neurologic Neurologic: Present: CNII-XII intact - Musculoskeletal Musculoskeletal: Present: strength equal bilaterally - Psychiatric Psychiatric: Present: A&O x's 3, appropriate affect, intact judgment & insight - Labs CBC & Chem 7: 11/07/22 06:28 11/07/22 06:28 Labs: Abnormal Lab Results - Last 24 Hours (Table) 11/06/22 11/07/22 11/07/22 Range/Units 04:34 06:28 06:28 RBC 3.32 L (4.30-5.90) m/uL Hgb 10.2 L (13.0-17.5) gm/dL Hct 32.8 L (39.0-53.0) % RDW 18.0 H (11.5-15.5) % Plt Count 51 L (150-450) k/uL Lymphocytes # (Manual) 0.57 L (1.0-4.8) k/uL Metamyelocytes # (Man) 0.14 H (0) k/uL Myelocytes # (Manual) 0.14 H (0) k/uL Nucleated RBCs 1 H (0-0) /100 WBC Carbon Dioxide 36 H (22-30) mmol/L BUN 35 H (9-20) mg/dL Glucose 103 H (74-99) mg/dL Calcium 8.1 L (8.4-10.2) mg/dL Procalcitonin 0.17 H (0.02-0.09) ng/mL Microbiology - Last 24 Hours (Table) 11/05/22 15:25 Blood Culture - Preliminary Blood Assessment and Plan (1) Acute on chronic heart failure Status: Acute Priority: High Code(s): I50.9 - HEART FAILURE, UNSPECIFIED SNOMED Code(s): 956906621 (2) NSTEMI (non-ST elevated myocardial infarction) Status: Acute Priority: High Code(s): I21.4 - NON-ST ELEVATION (NSTEMI) M YOCARDIAL INFARCTION SNOMED Code(s): 90530693 (3) NHL (non-Hodgkin's lymphoma) Status: Acute Code(s): C85.90 - NON-HODGKIN LYMPHOMA, UNSPECIFIED, UNSPECIFIED SITE SNOMED Code(s): 545332981 Plan: Acute on chronic CHF, elevated troponins -Patient has been seen by Cardiology. He reports feeling significantly better today. Defer management of the same to Cardiology -Echo report reviewed. LVEF 55-60% was 04/05, currently LVEF 50-55%. Slight ch jyoti from baseline. Not significant enough that treatment would have to be adjusted for final cycle. Considering having patient increase dose of Lasix for several days after infusion of large volume of fluids from treatment Non-Hodgkin's lymphoma -Patient is status post 5/6 cycles of mini R CHOP -Patient Hematologically has done fairly well. -Elevated WBC and ANC multifactorial. Patient did receive G-CSF on the so, that is going to contribute to the high level. Also, CHF exacerbation and elevated troponins are likely causing some increase as well. No fevers. His WBC and ANC are normal today -Plt noted 51,000 today. /2 treatment. Will have pt in for a CBC late this week to ensure plt not continuing to decline -With each cycle patient has noted a progressive increase in intensity and duration of weakness and symptoms, also taking him longer to recover. He has had dose reduction. May consider a few additional doses of lasix after chemo to prevent fluid volume overload
[2022-11-07] MEDS ORDERED: FUROSEMIDE 40 MG TAB PO SCH (16:00)
== END 2022-11-07 12:36 | disposition home or self-care (01) | DRG 280 ==
LOC: EC 12:34 → 3SCARD 15:04
PROVIDERS: ADMIT Internal Medicine; ATTEND Internal Medicine
DX: I11.0 Hypertensive heart disease with heart failure (principal); I50.33 Acute on chronic diastolic (congestive) heart failure; I21.A1 Myocardial infarction type 2; J96.21 Acute and chronic respiratory failure with hypoxia; C85.10 Unspecified B-cell lymphoma, unspecified site; I27.20 Pulmonary hypertension, unspecified; J44.9 Chronic obstructive pulmonary disease, unspecified; E78.5 Hyperlipidemia, unspecified; I25.10 Atherosclerotic heart disease of native coronary artery without angina pectoris; I08.2 Rheumatic disorders of both aortic and tricuspid valves; K21.9 Gastro-esophageal reflux disease without esophagitis; N40.0 Benign prostatic hyperplasia without lower urinary tract symptoms; M19.90 Unspecified osteoarthritis, unspecified site; D64.9 Anemia, unspecified; H91.90 Unspecified hearing loss, unspecified ear; Z79.02 Long term (current) use of antithrombotics/antiplatelets; Z79.51 Long term (current) use of inhaled steroids; Z79.899 Other long term (current) drug therapy; Z92.21 Personal history of antineoplastic chemotherapy; Z85.51 Personal history of malignant neoplasm of bladder; Z87.891 Personal history of nicotine dependence; Z95.1 Presence of aortocoronary bypass graft; H40.9 Unspecified glaucoma; L30.9 Dermatitis, unspecified; Z95.828 Presence of other vascular implants and grafts
CPT/HCPCS: 36415; 71046; 80048; 80053; 80061; 83735; 83880; 84145; 84484; 85025; 85730; 87040; 93005; 93306; 94640; 96365; 96375; 96376; 99291